=== PATIENT | male | born 1945 | race Caucasian/White ===

== ENCOUNTER → 2018-04-18 12:13 | Outpatient (CLI) | payer MEDICARE, BC, SELFPAY ==
--- NOTE | 2018-04-18 12:20 | RAD_ITS ---
STUDY: X-RAY CHEST REASON FOR EXAM: Male, 73 years old. Chronic cough TECHNIQUE: Frontal and lateral views of the chest. COMPARISON: None. FINDINGS: Elevated right hemidiaphragm. The lungs are clear and expanded. There is a 7 mm nodule in the lateral right lung base. CT scan recommended. No infiltrates. No effusions. There is no demonstrated pleural abnormality. Normal size heart. Normal mediastinum and clary. Normal visualized pulmonary arteries. Normal visualized aortic arch and descending thoracic aorta. There are diffuse degenerative changes of the visualized thoracic spine. Normal visualized ribs, clavicles, and shoulders. There is no demonstrated abnormality of the visualized soft tissue structures of the upper abdomen. RAD/Chest PA and Lateral IMPRESSION: There is a 7 mm nodule in the lateral right lung base. CT scan recommended. Electronically Signed: Dawson Shaw MD at 13:28 EDT , Service support ,
[2018-04-18 14:26] LABS: Absolute Lymphocyte Count 1.41 X10^3/ul (0.83-4.51); Absolute Neutrophil Count 3.6 X10^3/uL (2.0-7.7); Basophil# 0.01 X10^3/uL; Basophil% 0.2 % (0-1); Eosinophil# 0.14 X10^3/uL; Eosinophils% 2.3 % (0-5); Hematocrit 46.1 % (40-54); Hemoglobin 15.2 g/dl (13.0-16.5); Lymphocyte # 1.41 X10^3/ul (4.0); Lymphocyte % 23.4 % (19-41); Mean Corpuscular Hgb 27.6 pg (27.0-32.0); Mean Corpuscular Volume 83.7 fL (80-94); Mean Platelet Vol. 11.5 fl (6.2-12.0); Monocyte# 0.86 X10^3/uL; Monocyte% 14.3 % (0-10); Neutrophil % 59.6 % (47-70); Platelet Count 184 K/mm3 (150-450); RBC Distribution Width CV 14.5 % (11.6-14.6); RBC Distribution Width SD 44.6 fl (35.1-43.9); Red Blood Count 5.51 M/mm3 (4.6-6.2)
[2018-04-18 14:37] LABS: POSITIVE COUNT NO; POSITIVE DIFFERENTIAL NO; POSITIVE MORPHOLOGY NO
== END ==
PROVIDERS: Family Provider Family Medicine; PCP Family Medicine; Visit Provider Family Medicine
DX: R05 Cough (principal)
CPT/HCPCS: 36415; 71046; 85025

== ENCOUNTER → 2018-05-01 13:14 | Outpatient (CLI) | payer MEDICARE, BC, SELFPAY ==
--- NOTE | 2018-05-01 13:17 | CT_ITS ---
STUDY: CT CHEST WITH CONTRAST REASON FOR EXAM: Male, 73 years old. Follow-up for a new lung nodule RADIATION DOSAGE (If Supplied By Facility): CTDIvol = ( 17.87 ) mGy, DLP = ( 744.15 ) mGycm TECHNIQUE: Transaxial imaging was performed following intravenous administration of 100 ml of Isovue 300 contrast material. Individualized dose optimization techniques were used for this CT. COMPARISON: February 18, 2016 FINDINGS: : TRACHEA, THYROID, ESOPHAGUS: No tracheomalacia,stricture or wall thickening. Thyroid and esophagus are normal CARDIOVASCULAR SYSTEM:The thoracic aorta is normal with no aneurysm, dissection or developmental anomalies. The pulmonary trunk and the left and right pulmonary arteries and their lobar and segmental branches do not show any abnormal and persistent filling defects in them. There is therefore no evidence of pulmonary embolism. The heart is normal. There are no venous anomalies VENITA AND LYMPH NODES: No hilar masses and no mediastinal, hilar, axillary or supraclavicular adenopathy LUNGS, LOW-ATTENUATION: No traction bronchiectasis, honeycombing,emphysema, lung cysts or cavitations LUNGS, HIGH ATTENUATION: There is a 7.5 mm calcified granuloma in the right lower lobe. A slightly elevated right hemidiaphragm as a result a wedge resection of the right middle lobe. No nodules, groundglass opacities, groundglass nodules or masses are seen in either lung. LUNGS, MOSAIC/CRAZY PAVING: Not evident PLEURA AND CHEST WALL: No plural effusions, pneumothoraces,rib fractures or any osteolytic/osteoblastic changes . The soft tissue chest wall including the breasts are normal UPPER ABDOMEN: Unremarkable CT/Chest WITH Contrast IMPRESSION: Loss of volume in the right lung secondary to a previous partial right pneumonectomy. Subsequent elevation of the right hemidiaphragm. A calcified granuloma in the right lower lobe. The rest of the lungs are relatively clear. Electronically Signed: Marcellus Marcelo, at 4:15 EDT Tel , Service support ,
--- NOTE | 2018-05-01 13:18 | CT_ITS ---
STUDY: CT MAXILLOFACIAL SINUSES REASON FOR EXAM: Male, 73 years old. Chronic sinusitis and cough RADIATION DOSAGE (If Supplied By Facility): CTDIvol = ( 33.06 ) mGy, DLP = ( 796.66 ) mGycm TECHNIQUE: The patient was scanned in a multi detector CT scanner. High resolution axial imaging was performed without the administration of intravenous contrast material. Sagittal and coronal images were reconstructed. Individualized dose optimization techniques were used for this CT. COMPARISON: None. FINDINGS: : NASAL SEPTUM: Straight and midline with no spurs from it CRIBRIFORM PLATE AND GELY ASHANTI: The fovea ethmoidalis, lateral lamella and lamina cribrosa are normal. The anterior ethmoidal notch is normal with no supraorbital pneumatization. The olfactory fossa is symmetric with a Keros type II. No skull base dehiscence LAMINA PAPYRACEA: No remote orbital fracture and no orbital prolapse into the ethmoidal sinus . BONY BURNS: No dehiscence, demineralization or thickness TURBINATES: Normal thickness and no paradoxical orientation. No sabino bullosa . No turbinectomy OSTIOMEATAL UNITS: Patent with no ethmoidectomy, maxillary antrostomy, uncinectomy or turbinoplasty SPHENOETHMOIDAL RECESS: Patent FRONTAL SINUSES: Haziness within the left frontal sinus with craniotomy defects in the lateral wall of the left frontal sinus ETHMOID AIR CELLS: Aggar Nasi air cells are noted. No Queta air cells. Both the anterior and posterior ethmoidal air cells are clear of abnormal soft tissue attenuations MAXILLARY SINUSES: Normal with no arrested pneumatization or hyperpneumatization and no abnormal soft tissue attenuations SPHENOID SINUSES: Normal with conchal, presellar or sellar type pneumatization. No dehiscence into carotid canal and no optic nerve dehiscence within the sphenoid sinus. 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 Dense bony sclerosis lateral to the left lateral orbital wall CT/Sinus/Facial Bone IMPRESSION: Haziness within the left frontal sinus with craniotomy defects in the superolateral margin of the left frontal sinus. 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
[2018-05-01 13:31] LABS: CREATININE FINGERSTICK 0.9 mg/dL (0.70-1.30); EGFR FINGERSTICK > 60.0000 mL/min (>60)
== END ==
PROVIDERS: Family Provider Family Medicine; PCP Family Medicine; Visit Provider Family Medicine
DX: R91.1 Solitary pulmonary nodule (principal); R05 Cough
CPT/HCPCS: 70486; 71260; Q9967

== ENCOUNTER → 2018-05-03 08:09 | Outpatient (CLI) | payer MEDICARE, BC, SELFPAY ==
--- NOTE | 2018-05-03 13:28 | PFTCOMP_ITS ---
COMPLETE PULMONARY FUNCTION TEST INTERPRETATION Brief HPI: Patient is a 73 year old male, currently under the care of Dr. Lee, who presents to [facility] for complete pulmonary function tests secondary to diagnosis of chronic cough. Respiratory therapist reports good effort and reproducible results. Interpretation: Forced expiration spirometry shows no large airways obstructive ventilatory defect with an FEV1 of 106% predicted. There is no significant bronchodilator response by ATS criteria. Spirograms are of good quality and plateau normally. The respiratory flow volume loop shows a normal pattern. Lung volumes by body plethysmography show an elevated total lung capacity at 8.75 L, 146% predicted. All other lung volumes are increased symmetrically. Diffusion capacity by carbon monoxide is normal at 85% predicted. The airway resistance is normal. No previous pulmonary function tests were available for review. Impression: These pulmonary function tests are grossly within normal limits. There is some hyperinflation noted, but this may be a physiologic variant versus air leak during testing.
== END ==
PROVIDERS: Family Provider Family Medicine; PCP Family Medicine; Visit Provider Family Medicine
DX: R05 Cough (principal)
CPT/HCPCS: 94060; 94726; 94729

== ENCOUNTER → 2018-09-13 09:29 | Outpatient (CLI) | payer MEDICARE, BC, SELFPAY ==
[2018-09-13 12:29] LABS: Erythrocyte Sedimentation Rate 3 mm/hr (0-20)
[2018-09-17 11:50] LABS: Angiotensin Convert Enzyme 32 U/L (14-82)
== END ==
PROVIDERS: Family Provider Family Medicine; PCP Family Medicine; Referring Provider Internal Medicine Pulmonary Disease; Visit Provider Internal Medicine Pulmonary Disease
DX: R05 Cough (principal); I10 Essential (primary) hypertension
CPT/HCPCS: 36415; 82164; 85652

== ENCOUNTER → 2019-02-26 09:05 | Outpatient (CLI) | payer MEDICARE, BC, SELFPAY ==
[2018-09-10 08:50] VITALS: BMI 38.3
--- NOTE | 2019-02-26 09:30 | LES_PTH ---
PATIENT: CHUCK JASON LOC: [facility] U#:[id number] AGE/SX: 80/M ROOM: RE02/26/[address]: Dr. Otoniel Lee DO : 1945 BED: DIS: SPEC #: [id number] RECD: 02/26/19 13:31 STATUS: TO AMERCIA #: [id number] CAT: 02/26/19 09:[address]: Otoniel Lee DEPT: SURGICAL PATHOLOGY RECD BY: Shahid Carney Tissues: Skin of back, NOS Procedures: Surgery Specimen Level IV HEADER OPERATION: Punch biopsy atypical nevus PRE-OP DIAGNOSIS: Large nevus right shoulder, pigmented, favor benign TISSUE SUBMITTED: 4 mm punch biopsy nevus right upper back MICROSCOPIC DIAGNOSIS Right upper back skin lesion, punch biopsy: Seborrheic keratosis with focal verrucous keratosis-like features. Negative for malignancy. SJ:gus 02/27/19 MICROSCOPIC DESCRIPTION Slides are reviewed. GROSS DESCRIPTION Received is one container labeled with the patient's name and not further designated. The specimen consists of a punch biopsy of gardiner-white skin measuring 0.3 cm in length and 0.3 cm in diameter. The entire specimen is submitted in one cassette. / SJ:gus 02/26/19 TC:5 CPT: 66473
== END ==
PROVIDERS: Family Provider Family Medicine; PCP Family Medicine; Visit Provider Family Medicine
DX: L82.1 Other seborrheic keratosis (principal)
CPT/HCPCS: 88305

== ENCOUNTER → 2019-09-16 10:00 | Outpatient (CLI) | payer MEDICARE, BC, SELFPAY ==
[2019-09-16 08:26] VITALS: BMI 36.6
[2019-09-16 10:58] LABS: AST(SGOT) 19 U/L (15-37); Alanine Aminotransfer ALT/SGPT 22 U/L (16-61); Albumin, Serum 3.6 g/dL (3.2-5.0); Alkaline Phosphatase 116 U/L (45-117); Bilirubin, Direct 0.31 mg/dL (0.00-0.30); Cholesterol 155 mg/dL (200); Globulin 3.4 g/dL (2.2-4.2); High Density Lipoprotein 50 mg/dL; Triglycerides 104 mg/dL; Very Low Density Lipoprotein 21 mg/dL (5-40)
== END ==
PROVIDERS: Family Provider Family Medicine; PCP Family Medicine; Referring Provider Nurse Practitioner Family; Visit Provider Nurse Practitioner Family
DX: E78.5 Hyperlipidemia, unspecified (principal); I10 Essential (primary) hypertension
CPT/HCPCS: 36415; 80061; 80076

== ENCOUNTER → 2020-08-05 | Outpatient (CLI) | payer MEDICARE, BC, SELFPAY ==
[2019-09-16 08:26] VITALS: BMI 36.6
[2020-08-05 08:57] LABS: Mucous, Urine 0 SEEN /hpf (<or=2+)
[2020-08-05 09:25] LABS: Color, Urine Yellow (Yellow); Glucose, Dipstick Normal (Normal); Ketone-Dipstick 5 mg/dl (Negative); Leukocyte Esterase-Dipstick Negative /ul (Negative); Nitrite-Dipstick Negative (Negative); Occult Blood-Urine 25 /ul (Negative); Protein-Dipstick 15 mg/dl (Negative); Urine Bilirubin Dipstick Negative (Negative); Urine Clarity Clear (Clear); Urine Urobilinogen 4 mg/dl (Normal)
[2020-08-05 09:29] LABS: Absolute Lymphocyte Count 1.42 X10^3/uL (0.83-4.51); Absolute Neutrophil Count 3.2 X10^3/uL (2.0-7.7); Basophil# 0.06 X10^3/uL; Basophil% 1.1 % (0-1); Eosinophil# 0.12 X10^3/uL; Eosinophils% 2.3 % (0-5); Hematocrit 45.2 % (40-54); Hemoglobin 14.3 g/dL (13.0-16.5); Lymphocyte # 1.42 X10^3/ul (4.0); Lymphocyte % 26.6 % (19-41); Mean Corp Hgb Conc 31.6 g/dL (32-36); Mean Corpuscular Hgb 26.5 pg (27.0-32.0); Mean Corpuscular Volume 83.7 fL (80-94); Mean Platelet Vol. 11.5 fl (6.2-12.0); Monocyte# 0.56 X10^3/uL; Monocyte% 10.5 % (0-10); NRBC Flagged by Analyzer 0 % (0-5); Neutrophil # 3.16 X10^3/uL (2.7-7.7); Neutrophil % 59.3 % (47-70); Platelet Count 209 K/mm3 (150-450); RBC Distribution Width CV 15.1 % (11.6-14.6); RBC Distribution Width SD 45.9 fl (35.1-43.9); White Blood Count 5.3 K/mm3 (4.4-11.0)
[2020-08-05 09:33] LABS: Bacteria 1+ /hpf (None Seen); Hyaline Cast 0-5 SEEN /lpf (0-5); Red Blood Cells-Urine 0-5 SEEN /hpf (0-5); Squamous Epithelial Cells - UA 0-5 SEEN /hpf (0-5); White Blood Cells 0-5 SEEN /hpf (0-5)
[2020-08-05 10:02] LABS: ALB/GLOB Ratio 1.1 RATIO (0.9-2.4); AST(SGOT) 25 U/L (15-37); Alanine Aminotransfer ALT/SGPT 31 U/L (16-61); Albumin, Serum 3.5 g/dL (3.2-5.0); Alkaline Phosphatase 120 U/L (45-117); Anion Gap 3 (5-15); BUN 15 mg/dL (7-18); BUN/Creat Ratio 11.5 RATIO (10-20); Calcium,Total 8.4 mg/dL (8.5-10.1); Chloride 109 mmol/L (98-107); Cholesterol 154 mg/dL (200); Creatinine, Serum 1.31 mg/dL (0.70-1.30); EST Glomerular Filtration Rate 57 mL/min (>60); Est Glom Filt Rate - Afr Amer 69 mL/min (>60); Globulin 3.3 g/dL (2.2-4.2); Glucose 105 mg/dL (74-106); High Density Lipoprotein 49 mg/dL; PSA,Total - Annual Screen 1.75 ng/mL (0.00-4.00); Protein, Total 6.8 g/dL (6.4-8.2); Sodium Level 143 mmol/L (136-145); Triglycerides 171 mg/dL; Very Low Density Lipoprotein 34 mg/dL (5-40)
== END | disposition home or self-care (01) ==
LOC: LAB 08:52
PROVIDERS: PCP Family Medicine; Referring Provider Family Medicine; Visit Provider Family Medicine
DX: I25.10 Atherosclerotic heart disease of native coronary artery without angina pectoris (principal); I10 Essential (primary) hypertension; E80.6 Other disorders of bilirubin metabolism; R31.29 Other microscopic hematuria; Z12.5 Encounter for screening for malignant neoplasm of prostate; Z51.81 Encounter for therapeutic drug level monitoring
CPT/HCPCS: 36415; 80053; 80061; 81001; 84153; 85025; G0103

== ENCOUNTER → 2020-10-04 06:37 | Outpatient (CLI) | payer MEDICARE, BC, SELFPAY ==
[2020-09-21 07:43] VITALS: BMI 38.0
--- NOTE | 2020-10-04 15:48 | STRESSREP ---
Stress Test Report Exercise myocardial perfusion stress test. 75-year-old man with a history of hypertension, hyperlipidemia, moderate LAD stenosis. Stress protocol: Resting KG demonstrates normal sinus rhythm with a rate of 66 bpm normal intervals are noted resting blood pressure is 138/80 mmHg. The patient exercised according to regular Lee protocol for a total duration of 3 minutes and 40 seconds completing 40 seconds into stage II of the Lee protocol. The maximum heart rate attained was 155 bpm which was 106% of max impacted heart rate the maximum workload was 5.4 metabolic equivalents. The test was terminated due to fatigue. Patient maintained sinus rhythm throughout the recording. T wave inversions were noted in lead aVL with occasional premature ventricular complexes. Upsloping ST changes were noted with no meet the criteria for ischemia. The peak blood pressure was 180/70 mmHg. Myocardial perfusion protocol. 14.1 mCi of technetium 99m sestamibi was injected at rest. Patient exercised according to regular Lee protocol for a total duration of 3 minutes and 40 seconds. The maximum heart rate attained 155 bpm at peak exercise 44.3 mCi of technetium 99m sestamibi was injected at rest. Stress and rest images were reconstructed and compared in the short axis vertical long horizontal long axis. Gated images were also obtained Perfusion SPECT analysis: Review of the stress images demonstrate normal uptake of tracer noted in all areas of the myocardium the resting images similarly demonstrate normal uptake of tracer noted in all areas of the myocardium. No reversibility is noted suggest ischemia no previous infarct is noted. Gated SPECT analysis: The gated ejection fraction is 51%. Conclusion: Normal exercise myocardial perfusion stress test at a low to moderate workload. No clinical angina noted. The extent of the exercise may affect sensitivity for detection of ischemia.
== END ==
PROVIDERS: PCP Family Medicine; Referring Provider Internal Medicine Cardiovascular Disease; Visit Provider Internal Medicine Cardiovascular Disease
DX: I25.10 Atherosclerotic heart disease of native coronary artery without angina pectoris (principal)
CPT/HCPCS: 78452; 93017; A9500; A4216

== ENCOUNTER → 2021-10-24 | Outpatient (CLI) | payer MEDICARE, BC, SELFPAY | END | disposition home or self-care (01) | LOC: LABSPEC 10-25 10:49 | PROVIDERS: PCP Family Medicine; Referring Provider Family Medicine; Visit Provider Family Medicine | DX: N30.00 Acute cystitis without hematuria (principal) | CPT/HCPCS: 87077; 87086; 87088; 87186 ==

== ENCOUNTER → 2021-10-31 09:30 | Outpatient (CLI) | payer MEDICARE, BC, SELFPAY ==
[2021-10-31 10:50] LABS: AST(SGOT) 27 U/L (15-37); Alanine Aminotransfer ALT/SGPT 32 U/L (16-61); Albumin, Serum 3.3 g/dL (3.2-5.0); Alkaline Phosphatase 114 U/L (45-117); Bilirubin, Direct 0.23 mg/dL (0.00-0.30); Cholesterol 162 mg/dL (200); Globulin 3.7 g/dL (2.2-4.2); High Density Lipoprotein 48 mg/dL; Triglycerides 138 mg/dL; Very Low Density Lipoprotein 28 mg/dL (5-40)
== END ==
PROVIDERS: PCP Family Medicine; Referring Provider Nurse Practitioner Family; Visit Provider Nurse Practitioner Family
DX: E78.5 Hyperlipidemia, unspecified (principal)
CPT/HCPCS: 36415; 80061; 80076

== ENCOUNTER → 2022-02-28 | Outpatient (CLI) | payer MEDICARE, BC, SELFPAY | END | disposition home or self-care (01) | LOC: LABSPEC 18:13 | PROVIDERS: PCP Family Medicine; Visit Provider Family Medicine | DX: R35.0 Frequency of micturition (principal) | CPT/HCPCS: 87077; 87086; 87088; 87186 ==

== ENCOUNTER → 2022-05-17 | Outpatient (CLI) | payer MEDICARE, BC, SELFPAY | END | disposition home or self-care (01) | LOC: LABSPEC 05-18 08:15 | PROVIDERS: PCP Family Medicine; Visit Provider Family Medicine | DX: R35.0 Frequency of micturition (principal) | CPT/HCPCS: 87077; 87086; 87088; 87186 ==

== ENCOUNTER → 2022-06-01 | Outpatient (CLI) | payer MEDICARE, BC, SELFPAY ==
[2022-06-01 14:00] LABS: PSA,Total - Annual Screen 1.77 ng/mL (0.00-4.00)
== END | disposition home or self-care (01) ==
PROVIDERS: PCP Family Medicine; Referring Provider Urology; Visit Provider Urology
DX: Z12.5 Encounter for screening for malignant neoplasm of prostate (principal)
CPT/HCPCS: 36415; 84153; G0103

== ENCOUNTER → 2022-06-26 | Outpatient (CLI) | payer MEDICARE, BC, SELFPAY | END | disposition home or self-care (01) | LOC: LAB 11:10 | PROVIDERS: PCP Family Medicine; Referring Provider Urology; Visit Provider Urology | DX: R35.0 Frequency of micturition (principal) | CPT/HCPCS: 87077; 87086; 87088; 87186 ==

== ENCOUNTER → 2022-06-28 | Outpatient (CLI) | payer MEDICARE, BC, SELFPAY ==
--- NOTE | 2022-06-28 08:03 | CT_ITS ---
STUDY: CT ABDOMEN AND PELVIS WITHOUT CONTRAST REASON FOR EXAM: Male, 77 years old. HEMATURIA AND UTI''S RADIATION DOSAGE (If Supplied By Facility): CTDIvol = ( 19.97 ) mGy, DLP = ( 1038.66 ) mGycm TECHNIQUE: Transaxial images were obtained from the dome of the diaphragm to the symphysis pubis without oral contrast, and without intravenous contrast. Sagittal and coronal images were reconstructed. Individualized dose optimization techniques were used for this CT. COMPARISON: None. FINDINGS: 6.3 mm calcified granuloma in the right lower lobe. Calcified right hilar lymph node. Coronary artery calcification. Normal liver. There are surgical clips in the gallbladder fossa consistent with a prior cholecystectomy. There are multiple benign calcified granulomata of the spleen. Normal pancreas. Normal bilateral adrenal glands. There is a 6 cm x 5.1 cm cyst in the lower pole of the right kidney. 1 cm cyst in the anterior lateral aspect of the right kidney. Normal left kidney. There is a small hiatal hernia. Normal small intestine. Normal colon. The appendix is visualized and appears normal. There is diffuse atherosclerotic calcification of the abdominal aorta, without a demonstrated aneurysm. Normal inferior vena cava. Normal retroperitoneum. Normal urinary bladder. There is a right-sided inguinal hernia containing adipose tissue. There are degenerative changes of the visualized lumbar spine. CT/Abdomen/Pelvis without Cont IMPRESSION: 6 cm x 5.1 cm cyst in the lower pole of the right kidney Electronically Signed: Jeff Forman MD at 8:36 EDT ,
== END | disposition home or self-care (01) ==
LOC: CT 08:02
PROVIDERS: PCP Family Medicine; Referring Provider Urology; Visit Provider Urology
DX: R31.9 Hematuria, unspecified (principal)
CPT/HCPCS: 74176

== ENCOUNTER → 2022-09-04 | Outpatient (CLI) | payer MEDICARE, BC, SELFPAY ==
[2022-09-04 16:25] LABS: Anion Gap 6 (5-15); BUN 19 mg/dL (7-18); BUN/Creat Ratio 14.1 RATIO (10-20); Chloride 109 mmol/L (98-107); Creatinine, Serum 1.35 mg/dL (0.70-1.30); EST Glomerular Filtration Rate 55 mL/min (>60); Est Glom Filt Rate - Afr Amer 66 mL/min (>60); Glucose 119 mg/dL (74-106); Potassium 3.8 mmol/L (3.5-5.1); Sodium Level 144 mmol/L (136-145)
== END | disposition home or self-care (01) ==
LOC: LAB 14:40
PROVIDERS: PCP Family Medicine; Visit Provider Urology
DX: N30.01 Acute cystitis with hematuria (principal)
CPT/HCPCS: 36415; 80048

== ENCOUNTER → 2022-12-27 | Outpatient (CLI) | payer MEDICARE, BC, SELFPAY ==
[2022-12-27 11:34] LABS: AST(SGOT) 30 U/L (15-37); Alanine Aminotransfer ALT/SGPT 40 U/L (16-61); Albumin, Serum 3.5 g/dL (3.2-5.0); Alkaline Phosphatase 111 U/L (45-117); Bilirubin, Direct 0.29 mg/dL (0.00-0.30); Cholesterol 150 mg/dL (200); Globulin 3.5 g/dL (2.2-4.2); High Density Lipoprotein 48 mg/dL; Triglycerides 132 mg/dL; Very Low Density Lipoprotein 26 mg/dL (5-40)
== END | disposition home or self-care (01) ==
LOC: LAB 08:57
PROVIDERS: PCP Family Medicine; Visit Provider Internal Medicine Cardiovascular Disease
DX: E78.5 Hyperlipidemia, unspecified (principal); I10 Essential (primary) hypertension; I25.10 Atherosclerotic heart disease of native coronary artery without angina pectoris
CPT/HCPCS: 36415; 80061; 80076

== ENCOUNTER → 2023-04-16 | Outpatient (CLI) | payer MEDICARE, BC, SELFPAY ==
[2023-04-16 15:28] LABS: Absolute Lymphocyte Count 0.91 X10^3/uL (0.83-4.51); Absolute Neutrophil Count 2.9 X10^3/uL (2.0-7.7); Basophil# 0.02 X10^3/uL; Basophil% 0.4 % (0-1); Eosinophil# 0.09 X10^3/uL; Eosinophils% 1.8 % (0-5); Hematocrit 53.7 % (40-54); Hemoglobin 17.3 g/dL (13.0-16.5); Lymphocyte # 0.91 X10^3/ul (0.83-4.51); Lymphocyte % 17.9 % (19-41); Mean Corp Hgb Conc 32.2 g/dL (32-36); Mean Corpuscular Hgb 28.8 pg (27.0-32.0); Mean Corpuscular Volume 89.4 fL (80-94); Monocyte# 1.16 X10^3/uL; Monocyte% 22.8 % (0-10); NRBC Flagged by Analyzer 0 % (0-5); Neutrophil # 2.89 X10^3/uL (2.7-7.7); Neutrophil % 56.7 % (47-70); Platelet Count 177 K/mm3 (150-450); RBC Distribution Width CV 14.1 % (11.6-14.6); Red Blood Count 6.01 M/mm3 (4.6-6.2); White Blood Count 5.1 K/mm3 (4.4-11.0)
== END | disposition home or self-care (01) ==
LOC: BFHLAB 11:21
PROVIDERS: PCP Family Medicine; Referring Provider Family Medicine; Visit Provider Family Medicine
DX: R05.9 Cough, unspecified (principal)
CPT/HCPCS: 36415; 85025

== ENCOUNTER → 2023-05-04 | Outpatient (CLI) | payer MEDICARE, BC, SELFPAY ==
--- NOTE | 2023-05-05 07:11 | BRONCHALL ---
Bronchoprovocation Challenge Bronchoprovocation Challenge Bronchoprovocation Challenge: INTRODUCTION: The patient is a 78-year-old male that presents for a bronchoprovocation challenge secondary to a diagnosis of cough. Respiratory therapist reported good patient effort and reproducible results. INTERPRETATION: Initial spirometry did not show any large airways obstructive ventilatory defect and preserved airflows throughout. The patient was then given progressively increasing doses of methacholine in a standardized fashion. At no point during the testing did the patient's FEV1 level drop to the threshold criteria to be considered a positive test. IMPRESSION: Negative methacholine inhalation challenge.
== END | disposition home or self-care (01) ==
LOC: PSN 09:14
PROVIDERS: PCP Family Medicine; Referring Provider Family Medicine; Visit Provider Family Medicine
DX: R05.3 Chronic cough (principal)
CPT/HCPCS: 94070; 95070; J3490; J7674

== ENCOUNTER → 2023-05-22 | Outpatient (CLI) | payer MEDICARE, BC, SELFPAY ==
--- NOTE | 2023-05-22 13:55 | CT_ITS ---
INDICATION: Chronic cough - concern for bronchiectasis -- Please include HRCT imaging EXAMINATION: CT CHEST WITHOUT CONTRAST - CT Chest High Resolution WO Contrast Injection TECHNIQUE: Helically acquired images were obtained of the chest, initially in prone position, and subsequently in supine position. A radiation dose optimization technique was used for this scan. IV Contrast dosage and agent: None. RADIATION DOSAGE (If Supplied By Facility): CTDIvol = ( 20.39 ) mGy, DLP = ( 1572.89 ) mGycm COMPARISON: IV contrast enhanced CT chest May 01, 2018 FINDINGS: LUNGS, PLEURA AND LARGE AIRWAYS: Changes of prior partial anterior right pneumonectomy again seen, with surgical clips and sutures along the inferior right lung and elevated anterior diaphragm. Calcified granuloma in the lateral basilar right lower lobe also unchanged. No new nodules or infiltrates. No pleural effusion or thickening. No pneumothorax. THYROID: No thyroid lesions. HEART AND PERICARDIUM: Heart size is normal. No pericardial effusion. CORONARY ARTERIES: Coronary artery calcification is seen. VESSELS: Stable atherosclerotic calcifications of the thoracic aortic arch and descending thoracic aorta. Thoracic aorta is not dilated. MEDIASTINUM AND VENITA: Stable calcified right anterior paratracheal lymph nodes just above the azygos arch. Stable calcified lymph node medial to the right mainstem bronchus. No mediastinal or hilar adenopathy. Esophagus is unremarkable. No hiatal hernia. UPPER ABDOMEN: No acute pathology. Surgical clips of prior cholecystectomy noted gallbladder fossa. There are numerous calcified granulomata in the spleen. BONES: Stable multilevel degenerative changes of the thoracic spine, including multilevel calcification in the anterior longitudinal ligament again noted. No suspicious lytic or blastic abnormality. CT/Chest without Contrast IMPRESSION: 1. 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 No acute cardiopulmonary pathology. 2. Prior cholecystectomy. Electronically Signed: Abdi Lacey MD at 15:24 EDT Reading Location ID and State: [id number] / Unknown , Service support ,
== END | disposition home or self-care (01) ==
LOC: CT 13:53
PROVIDERS: PCP Family Medicine; Referring Provider Internal Medicine Critical Care Medicine; Visit Provider Internal Medicine Critical Care Medicine
DX: R05.3 Chronic cough (principal)
CPT/HCPCS: 71250

== ENCOUNTER → 2023-08-23 | Outpatient (CLI) | payer MEDICARE, BC, SELFPAY | END | disposition home or self-care (01) | PROVIDERS: PCP Family Medicine; Referring Provider Internal Medicine Critical Care Medicine; Visit Provider Internal Medicine Critical Care Medicine | DX: J47.9 Bronchiectasis, uncomplicated (principal) | CPT/HCPCS: 94667 ==

== ENCOUNTER → 2024-01-11 | Outpatient (CLI) | payer MEDICARE, BC, SELFPAY ==
--- NOTE | 2024-01-11 13:30 | CDU_ITS ---
Reason For Study: HX CAD / Lt Carotid Stenosis Rt. Velocities/BP Lt. Velocities/BP Prox CCA 63.4/10.6 cm/sec. Prox CCA 113.3/14.5 cm/sec. Mid CCA 56.0/9.3 cm/sec. Mid CCA 86.9/16.7 cm/sec. Dist CCA 81.8/9.3 cm/sec. Dist CCA 82.5/12.3 cm/sec. Prox ICA 47.8/9.1 cm/sec. Prox ICA 60.0/9.5 cm/sec. Mid ICA 42.5/10.6 cm/sec. Mid ICA 49.0/10.6 cm/sec. Dist ICA 66.8/15.7 cm/sec. Dist ICA 48.7/14.7 cm/sec. Rt. ICA/CCA = 1.2. Lt. ICA/CCA = 0.7. Prox ECA 126.4/0.0 cm/sec. Prox ECA 198.5/6.7 cm/sec. Rt. Vert. 35.4/7.5 cm/sec. Lt. Vert. 48.6/11.8 cm/sec. Right Extracranial There is homogeneous, smooth atherosclerotic plaque noted in the right common carotid artery. There is intimal thickening but no significant atherosclerotic plaque noted in the right internal carotid artery. There is heterogeneous, irregular atherosclerotic plaque noted in the right external carotid artery. Antegrade flow is noted in the right vertebral artery. Left Extracranial There is homogeneous, smooth atherosclerotic plaque noted in the left common carotid artery. There is intimal thickening but no significant atherosclerotic plaque noted in the left internal carotid artery. There is heterogeneous, irregular atherosclerotic plaque noted in the left external carotid artery. Antegrade flow is noted in the left vertebral artery. Procedure Carotid Duplex 41613. This is a Carotid Duplex examination using B-mode, color flow and specral Doppler. The exam was diagnostic. Exam performed in department. VL/Carotid Duplex Ultrasound Interpretation Summary Normal right extracranial internal carotid. Normal left extracranial internal carotid. Patent and antegrade vertebrals bilaterally. Ordering Physician: Sorin Candelario Referring Physician: Otoniel Lee Performed By: Rivera Uriostegui RVT
== END | disposition home or self-care (01) ==
LOC: CVS 13:29
PROVIDERS: PCP Family Medicine; Referring Provider Nurse Practitioner Family; Visit Provider Nurse Practitioner Family
DX: I65.22 Occlusion and stenosis of left carotid artery (principal); I10 Essential (primary) hypertension; I25.10 Atherosclerotic heart disease of native coronary artery without angina pectoris; E78.5 Hyperlipidemia, unspecified
CPT/HCPCS: 93880

== ENCOUNTER → 2024-01-24 | Outpatient (CLI) | payer MEDICARE, BC, SELFPAY ==
[2024-01-24 11:43] LABS: AST(SGOT) 32 U/L (15-37); Alanine Aminotransfer ALT/SGPT 44 U/L (16-61); Albumin, Serum 3.4 g/dL (3.2-5.0); Alkaline Phosphatase 99 U/L (45-117); Bilirubin, Direct 0.37 mg/dL (0.00-0.30); Cholesterol 151 mg/dL (200); Globulin 3.3 g/dL (2.2-4.2); High Density Lipoprotein 45 mg/dL; Protein, Total 6.7 g/dL (6.4-8.2); Triglycerides 213 mg/dL; Very Low Density Lipoprotein 43 mg/dL (5-40)
== END | disposition home or self-care (01) ==
LOC: LAB 08:12
PROVIDERS: PCP Family Medicine; Referring Provider Nurse Practitioner Family; Visit Provider Nurse Practitioner Family
DX: E78.00 Pure hypercholesterolemia, unspecified (principal)
CPT/HCPCS: 36415; 80061; 80076

== ENCOUNTER 2024-03-24 20:01 | Outpatient (CLI) | payer MEDICARE, BC, SELFPAY | END 2024-03-24 23:59 | disposition home or self-care (01) | LOC: SL 20:01 | PROVIDERS: PCP Family Medicine; Referring Provider Nurse Practitioner Acute Care; Visit Provider Nurse Practitioner Acute Care | DX: G47.31 Primary central sleep apnea (principal); G47.10 Hypersomnia, unspecified | CPT/HCPCS: 95811 ==

== ENCOUNTER → 2024-10-15 | Outpatient (CLI) | payer MEDICARE, BC, SELFPAY ==
[2024-10-15 15:26] LABS: Absolute Lymphocyte Count 1.56 X10^3/uL (0.83-4.51); Absolute Neutrophil Count 3.5 X10^3/uL (2.0-7.7); Basophil# 0.04 X10^3/uL; Basophil% 0.7 % (0-1); Eosinophil# 0.13 X10^3/uL; Eosinophils% 2.2 % (0-5); Hematocrit 49.9 % (40-54); Hemoglobin 16.8 g/dL (13.0-16.5); Lymphocyte # 1.56 X10^3/ul (0.83-4.51); Lymphocyte % 26.5 % (19-41); Mean Corp Hgb Conc 33.7 g/dL (32-36); Mean Corpuscular Hgb 30.2 pg (27.0-32.0); Mean Corpuscular Volume 89.6 fL (80-94); Mean Platelet Vol. 11.7 fl (6.2-12.0); Monocyte# 0.68 X10^3/uL; Monocyte% 11.6 % (0-10); NRBC Flagged by Analyzer 0 % (0-5); Neutrophil # 3.45 X10^3/uL (2.7-7.7); Neutrophil % 58.7 % (47-70); Platelet Count 189 K/mm3 (150-450); RBC Distribution Width SD 42.4 fl (35.1-43.9); Red Blood Count 5.57 M/mm3 (4.6-6.2); White Blood Count 5.9 K/mm3 (4.4-11.0)
[2024-10-15 15:43] LABS: Anion Gap 4 (5-15); BUN 14 mg/dL (7-18); BUN/Creat Ratio 10.6 RATIO (10-20); Calcium,Total 9.4 mg/dL (8.5-10.1); Chloride 110 mmol/L (98-107); Creatinine, Serum 1.32 mg/dL (0.70-1.30); EST Glomerular Filtration Rate 56 mL/min (>60); Est Glom Filt Rate - Afr Amer 67 mL/min (>60); Glucose 101 mg/dL (74-106); Potassium 4.2 mmol/L (3.5-5.1); Sodium Level 142 mmol/L (136-145)
== END | disposition home or self-care (01) ==
LOC: BFHLAB 11:59
PROVIDERS: PCP Family Medicine; Visit Provider Family Medicine
DX: I10 Essential (primary) hypertension (principal); D75.1 Secondary polycythemia
CPT/HCPCS: 36415; 80048; 85025

== ENCOUNTER → 2025-07-23 | Outpatient (CLI) | payer MEDICARE, BC, SELFPAY ==
--- NOTE | 2025-07-23 13:31 | ECHOCS_ITS ---
Reason For Study Reason For Study: DYSPNEA/SOB Procedure This was a 2D Doppler, Color Flow transthoracic echocardiogram. The study was technically difficult. Due to body habitus. Contrast injection was performed. Exam performed in department. Left Ventricle Normal LV size. Left ventricular systolic function is normal. The left ventricular ejection fraction is 65 %. No regional wall motion abnormalities noted. Right Ventricle Normal RV size. Normal systolic function. Atria Normal left atrium. Normal right atrium. Mitral Valve Normal mitral valve. Tricuspid Valve Normal tricuspid valve. Mild (1+) tricuspid valve insufficiency. Pulmonary artery systolic pressure is 30 mmHg. Aortic Valve Trisinus/trileaflet aortic valve. Pulmonic Valve Normal pulmonic valve. Great Vessels Normal aortic root. The pulmonary artery is normal size. Inferior vena cava collapse with respiration. Pericardium/Pleural No pericardial effusion. Medication 22 gauge I.V. with prn adaptor inserted into left arm. Diluted definity 2.0ml given slow IV push to enhance endocardial definition. MMode/2D Measurements & Calculations LVIDd: 4.9 cm IVSd: 1.1 cm Ao root diam: 3.4 cm LVIDs: 3.5 cm LVPWd: 1.2 cm RVDd: 3.0 cm FS: 28.9 % asc Aorta Diam: 3.5 cm LAV(MOD-bp): 46.9 ml LVAd ap4: 14.4 cm2 LAV(MOD-bp) Indexed: 21.1 ml/m2 LVLd ap4: 5.3 cm LAV(MOD-sp2): 46.8 ml EDV(MOD-sp4): 33.8 ml LAV(MOD-sp4): 38.4 ml EDV(sp4-el): 33.0 ml LVAs ap4: 7.8 cm2 LVLs ap4: 4.4 cm ESV(MOD-sp4): 12.3 ml ESV(sp4-el): 11.7 ml EF(MOD-sp4): 63.7 % EF(sp4-el): 64.7 % SV(MOD-sp4): 21.5 ml SV(sp4-el): 21.4 ml LA A4 area: 14.6 cm2 SI(MOD-sp4): 9.7 ml/m2 LA dimension(2D): 3.9 cm RA A4 area: 10.8 cm2 TAPSE: 2.3 cm Time Measurements MV dec time: 0.25 sec Doppler Measurements & Calculations MV E max guero: 82.8 cm/sec Lat Peak E' Guero: 10.4 cm/sec Med Peak E' Guero: 8.1 cm/sec MV A max guero: 101.1 cm/sec E/E' lat: 8.0 E/E' med: 10.2 MV E/A: 0.82 MV V2 max: 106.8 cm/sec MV P1/2t max guero: 91.1 cm/sec Ao V2 max: 136.1 cm/sec MV max P.6 mmHg MV P1/2t: 70.0 msec Ao max P.4 mmHg MV V2 mean: 49.5 cm/sec MV dec slope: 381.1 cm/sec2 Ao V2 mean: 98.5 cm/sec MV mean P.2 mmHg MVA(P1/2t): 3.1 cm2 Ao mean P.2 mmHg MV V2 VTI: 30.9 cm Ao V2 VTI: 27.9 cm AV (velocity ratio): 0.79 LV V1 max: 101.3 cm/sec PA V2 max: 100.0 cm/sec TR max guero: 262.4 cm/sec LV V1 max P.1 mmHg PA V2 mean: 64.7 cm/sec TR max P.6 mmHg LV V1 mean P.4 mmHg LV V1 mean: 74.7 cm/sec LV V1 VTI: 22.1 cm ECHO/Echo Complete W/ Contrast Interpretation Summary Normal LV size. Left ventricular systolic function is normal. The left ventricular ejection fraction is 65 %. Pulmonary artery systolic pressure is 30 mmHg. Contrast injection was performed. Ordering Physician: Sandra Berry Referring Physician: Otoniel Lee Performed By: Yvonne Garcia, ALMACS, RVT
== END | disposition home or self-care (01) ==
LOC: CVS 13:28
PROVIDERS: PCP Family Medicine; Referring Provider Nurse Practitioner Acute Care; Visit Provider Nurse Practitioner Acute Care
DX: R06.02 Shortness of breath (principal)
CPT/HCPCS: 93306; Q9957; A4216; C8929

== ENCOUNTER → 2025-07-28 | Outpatient (CLI) | payer MEDICARE, BC, SELFPAY ==
--- OUTSIDE RECORDS SUMMARY | 2025-07-28 19:51 | XMS RPT_ITS | CCD ---
Author Organization [facility] Care Team Providers Care Wedger Name Role Phone Carolyn Hargrove Unavailable Unavailable Carolyn Hargrove Unavailable Unavailable LISA HOWARD MD Attending Unavailable LISA HOWARD MD Primary Care Unavailable LISA HOWARD MD Admitting Unavailable HABERJAN LLOYD Admitting Unavailable HABJAN WOLFE Attending Unavailable JNA MONTANEZ Primary Care Unavailable Unknown, Referring Provider Unavailable Unav ailable Unavailable Unavailable Otoniel Lee Unavailable Brandi, Dr. Beny Feliz Attending Unavailable [facility], Dr. Beny Herring Referring Unavailable UNKNOWN, PCP Primary Care Unavailable Cipriano, Dr. Rasheeda Lundberg Attending Unavailable UNKNOWN, PCP Primary Care Unavailable Cipriano, Dr. Rasheeda Lundberg Attending Unavailable Cipriano, Dr. Rasheeda Lundberg Referring Unavailable UNKNOWN, PCP Primary Care Unavailable Cipriano, Dr. Rasheeda Lundberg Admitting Unavailable Cipriano, Dr. Rasheeda Lundberg Attending Unavailable Cipriano, Dr. Rasheeda Lundberg Referring Unavailable Dr. Otoniel Lee Primary Care Unavaila ble Dr. Otoniel Lee Primary Care Provider [phone] Otoniel Lee Referring Provider Dr. Carlos Gray Attending Provider [phone] Dr. Otoniel Lee Primary Care Unavaila ble Rasheeda Cota Attending Unavailable CiprianoRasheeda Referring Unavailable Dr. Otoniel Lee Primary Care Provider [phone] Dr. Otoniel Lee Referring Provider Dr. Carlos Gray Attending Provider [phone] Dr. Otoniel Lee Primary Care Provider [phone] Dr. Otoniel Lee Referring Provider Dr. Otoniel Lee Other Provider Dr. Joe Guo Attending Provider Dr. Lee Ervin Attending Provider Dr. Otoniel Lee Primary Care Provider Dr. Otoniel Lee Referring Provider Roof TRANSVERSE ABDOMINAL MUSCLE SURGEON, TRANSVERSE ABDOMINAL MUSCLE SURGEON-C Lisa Grover Attending Provider Dr. Gilbert Yee Attending Provider Roof TRANSVERSE ABDOMINAL MUSCLE SURGEON, TRANSVERSE ABDOMINAL MUSCLE SURGEON-C iLsa Grover Referring Provider Dr. Otoniel Lee DO Primary Care Provider Dr. Otoniel Lee DO Referring Provider Jamal TRANSVERSE ABDOMINAL MUSCLE SURGEON-CSandra Attending Provider Otoniel Lee Primary Care Unavailable Isaac, Carlos Attending Unavailable Berry TRANSVERSE ABDOMINAL MUSCLE SURGEON, Sandra Attending Unavailable Otoniel Lee Primary Care Unavailable JesusOtoniel crump Referring Unavailable Jesus, Otoniel Attending Unavailable Jesus, Otoniel Primary Care Unavailable Berry TRANSVERSE ABDOMINAL MUSCLE SURGEON, Sandra Attending Unavailable Jesus, Otoniel Primary Care Unavailable Berry TRANSVERSE ABDOMINAL MUSCLE SURGEON, Sandra Referring Unavailable Berry TRANSVERSE ABDOMINAL MUSCLE SURGEON, Sandra Attending Unavailable Otoniel Lee Primary Care Unavailable Jamal TRANSVERSE ABDOMINAL MUSCLE SURGEON, Sandra Referring Unavailable Jesus, Otoniel Referring Unavailable Jesus, Otoniel Primary Care Unavailable Isaac, [place] Attending Unavailable Jesus, Otoniel Referring Unavailable JesusOtoniel crump Primary Care Unavailable Berry TRANSVERSE ABDOMINAL MUSCLE SURGEON, Sandra Attending Unavailable Allergies Allergy Classification Reported Allergen(s) Allergy Type Date of Onset Reaction(s) Facility (15 sources) morphine; Translations: [morphine] Drug Allergy 09-08-2016 nausea/vomiting, DOESN'T WORK WELL FOR PT-FEEL FUNNY [employer] Work Phone: [phone] (4 sources) NKDA drug allergy 04-28-2014 [employer] Work Phone: [phone] Medications Current Medications Medication Drug Class(es) Dates Sig (Normalized) Sig (Original) Acapella (4 sources) Start: 10-19-2023 Acapella Active 0 .ROUTE .MEDSUPPLY 1 0 August 23, 2023 12:00am Bronchiectasis, uncomplicated Pulmonary toileting As directed Start: 08-23-2023 Acapella Activ e 0 .ROUTE .MEDSUPPLY 1 August 23, 2023 12:00am As directed [id number] 200 actuat albuterol 0.09 mg/actuat metered dose inhaler (1 source) beta2-Adrenergic Agonist Start: 03-10-2024 Albuterol Sulfate (Ventolin Hfa) 90 mcg/actuation HFA aerosol inhaler Active 2 NMA INHALATION Q4H as needed for shortness of breath or wheezing 22 04March 10, 2024 12:00am Daytime hypersomnia Hypersomnia, unspecified ezetimibe 10 mg / simvastatin 20 mg oral tablet (20 sources) HMG-CoA Reductase Inhibitor, Dietary Cholesterol Absorption Inhibitor Start: 08-25-2016 End: 05-16-2023 take 1 tablet by mouth once daily Ezetimibe-Simvasta tin Discontinued 0 .ROUTE .COMPLEX 90 May 17, 2022 7:59am May 16, 2023 1:49pm TAKE 1 TABLET BY MOUTH EVERY DAY Start: 03-17-2011 End: 05-06-2025 take 1 tablet by mouth once daily Ezetimibe-Simvastatin 10-20 mg tablet Active 0 .ROUTE .COMPLEX 90 May 06, 2025 12:46pm TAKE 1 TABLET BY MOUTH EVERY DAY Completed/Discontinued Medications Medication Drug Class(es) Dates Sig (Normalized) Sig (Original) acetaminophen 500 mg oral tablet (20 sources) Start: 05-25-2017 End: 12-26-2022 take 2 tablets by mouth every eight hours Acetaminophen 500 MG tablet Discontinued 1000 mg PO EVERY 8 HOURS 90 0 May 25, 2017 12:00am December 26, 2022 2:38pm TAKE EVERY 8 HOURS SCHEDULED Start: 05-25-2017 End: 12-26-2022 take 1000 mg by mouth every eight hours Acetaminophen Discontinued 1000 MG PO EVERY 8 HOURS 90 May 25, 2017 12:00am December 26, 2022 2:38pm TAKE EVERY 8 HOURS SCHEDULED Start: 09-21-2016 End: 01-04-2017 take 2 tablets by mouth every six hours as needed for pain Acetaminophen (Tylenol) 325 MG tablet Discontinued 650 mg PO EVERY 6 HOURS as needed for Pain December 25, 2016 3:41pm January 04, 2017 9:43am acetaminophen 300 mg / codeine phosphate 30 mg oral tablet (4 sources) Opioid Agonist Start: 05-14-2015 End: 09-08-2016 ACETAMINOPHEN-CODEINE #3 300-30 MG TABS One tablet by mouth at night ACETAMINOPHEN-CODEINE [id number] Carlos Gray MD amLODIPine 5 mg oral tablet (20 sources) Dihydropyridine Calcium Channel Daljit Start: 02-12-2025 End: 02-12-2025 take 2 tablets by mouth once daily Amlodipine 5 mg tablet Discontinued 10 mg PO DAILY February 12, 2025 1:22pm February 12, 2025 1:26pm Start: 02-12-2025 take 1 tablet by sara th once daily Amlodipine 10 mg tablet Active 10 mg PO daily 90 February 12, 2025 12:00am Start: 12-25-2023 End: 02-12-2025 take 1 tablet by mouth once daily Amlodipine 5 mg tablet Discontinued 5 mg PO DAILY January 13, 2025 4:00pm February 12, 2025 1:22pm Start: 05-17-2022 End: 12-25-2023 take 1 tablet by mouth once daily Amlodipine Discontinued 0 .ROUTE .COMPLEX 90 May 16, 2023 1:49pm December 25, 2023 2:39pm TAKE 1 TABLET BY MOUTH EVERY DAY Start: 10-27-2021 End: 10-27-2021 take 2 tablets by mouth once daily Amlodipine 2.5 mg tablet Discontinued 5 mg PO DAILY October 27, 2021 12:25pm October 27, 2021 12:55pm Start: 10-27-2021 End: 10-27-2021 take 5 mg by mouth once daily Amlodipine Discontinued 5 MG PO DAILY October 27, 2021 12:25pm October 27, 2021 12:55pm Start: 08-09-2012 End: 12-25-2023 take 1 tablet by mouth once daily Amlodipine 2.5 mg tablet Discontinued 0 .ROUTE .COMPLEX 90 May 16, 2023 1:49pm December 25, 2023 2:39pm TAKE 1 TABLET BY MOUTH EVERY DAY Start: 03-17-2011 take 1 tablet by sara th once daily NORVASC 5 MG TABS One half tablet by mouth daily AMLODIPINE BESYLATE [id number] Carlos Gray MD amoxicillin 875 mg / clavulanate 125 mg oral tablet (1 source) Penicillin-class Antibacterial Start: 04-14-2024 End: 04-21-2024 Amoxicillin-Pot Clavulanate 875-125 mg tablet Discontinued 1 {tbl} PO Q12H 14 7 0 April 14, 2024 12:00am April 20, 2024 12:00am April 21, 2024 12:06am ascorbic acid 500 mg oral tablet (15 sources) Vitamin C Start: 12-26-2022 End: 12-25-2023 take 1 tablet by mouth twice daily Ascorbic Acid (Vitamin C) 500 mg tablet Discontinued 500 mg PO TWICE A DAY December 26, 2022 1:00am December 25, 2023 2:33pm take 2 capsules by mouth once da sheron Vitamin C 500 MG Oral Capsule TAKE 2 CAPSULE Daily Quantity: 0 Refills: 0 Ordered: 15-Nov-2022 DO Active aspirin 81 mg delayed release oral tablet (20 sources) Nonsteroidal Anti-inflammatory Drug Start: 09-10-2018 End: 09-16-2019 Aspirin (Adult Low Dose Aspirin) 81 mg tablet,delayed release (DR/EC) Discontinued 81 mg PO DAILY September 10, 2018 1:00am September 16, 2019 10:26am Start: 05-25-2017 End: 09-10-2018 take 1 tablet by mouth twice daily at mealtime Aspirin 325 MG tablet Discontinued 325 mg PO TWICE DAILY WITH MEALS 30 0 May 25, 2017 12:00am September 10, 2018 9:51am DVT PROPHYLAXIS FOR 4 WEEKS Start: 05-14-2017 End: 05-25-2017 take 1 tablet by mouth once daily Aspirin 81 MG Tablet.Dr Discontinued 81 mg PO DAILY May 14, 2017 12:00am May 25, 2017 7:29am Start: 03-17-2011 End: 02-11-2015 take 1 tablet by mouth once daily ASPIRIN 81 MG TABS One tablet by mouth daily ASPIRIN [id number] Arnol Prince azithromycin 250 mg oral tablet (2 sources) Macrolide Antimicrobial Start: 06-14-2015 End: 06-19-2015 take 2 tablets by mouth once, then take 1 tablet by mouth once daily, then take 2-5 tablets by mouth AZITHROMYCIN 250 MG TABS 2 PO on day 1 then 1 PO daily on days 2-5 AZITHROMYCIN [id number] Otoniel Cai Jesus Citric Acid 08414 MG / Magnesium Oxide 3500 MG / picosulfate sodium 10 MG Powder for Oral Solution (2 sources) Start: 02-11-2015 End: 02-12-2015 PREPOPIK 10-3.5-12 MG-GM-GM PACK use as per instructions SOD PICOSULFATE-MAG OX-CIT ACD [id number] Rubi Moreau docusate sodium 50 mg / sennosides, assisted 8.6 mg oral tablet (12 sources) Start: 05-25-2017 End: 09-10-2018 Sennosides-Docusat e Sodium 1 TABLET tablet Discontinued 2 {tbl} PO TWICE A DAY 0 May 25, 2017 12:00am September 10, 2018 9:53am TAKE UNTIL FIRST BOWEL MOVEMENT, THEN NEEDED Start: 05-25-2017 End: 09-10-2018 Sennosides-Docusate Sodium D iscontinued 2 TABLET PO TWICE A DAY May 25, 2017 12:00am September 10, 2018 9:53am TAKE UNTIL FIRST BOWEL MOVEMENT, THEN NEEDED etodolac 300 mg oral capsule (4 sources) Nonsteroidal Anti-inflammatory Drug Start: 04-28-2014 End: 09-08-2016 take 1 tablet by mouth once daily ETODOLAC 300 MG CAPS (Lodine) One tablet by mouth daily ETODOLAC [id number] Otoniel Cai Jesus famotidine 20 mg oral tablet (20 sources) Histamine-2 Receptor Antagonist Start: 05-25-2017 End: 12-26-2022 take 1 tablet by mouth once daily Famotidine 20 mg tablet Discontinued 20 mg PO DAILY September 10, 2018 9:53am September 16, 2019 10:26am ferrous sulfate 325 mg oral tablet (12 sources) Start: 05-25-2017 End: 09-10-2018 Ferrous Sulfate 325 MG tablet Discontinued 325 mg PO TWICE DAILY WITH MEALS 0 May 25, 2017 12:00am September 10, 2018 9:52am TAKE FOR 1 WEEK POST-OP THEN MAY STOP 120 actuat fluticasone propionate 0.044 mg/actuat metered dose inhaler (16 sources) Corticosteroid Start: 09-10-2018 End: 12-26-2022 Fluticasone Propionate (Flovent Hfa) 44 mcg/actuation HFA aerosol inhaler Discontinued 1 NMA INHALATION TWICE A DAY September 10, 2018 1:00am December 26, 2022 2:39pm Start: 09-10-2018 End: 12-26-2022 Fluticasone Propionate (Flov ent Hfa) 44 mcg/actuation HFA aerosol inhaler Discontinued 1 INH INHALATION TWICE A DAY September 10, 2018 1:00am December 26, 2022 2:39pm Start: 02-11-2015 End: 09-08-2016 take 2 spray(s) nasal route once daily FLUTICASONE PROPIONATE 50 MCG/ACT SUSP Two sprays each nostril daily FLUTICASONE PROPIONATE [id number] Otoniel Lee DO folic acid 1 mg oral tablet (12 sources) Start: 05-25-2017 End: 09-10-2018 Folic Acid 1 MG tablet Discontinued 1 mg PO TWICE DAILY WITH MEALS 0 0 May 25, 2017 12:00am September 10, 2018 9:52am TAKE FOR 1 WEEK POST-OP THEN MAY STOP methenamine mandelate 1000 mg oral tablet (15 sources) Start: 10-01-2022 End: 12-25-2023 Methenamine Mandelate 1 gram tablet Discontinued 1 g PO TWICE A DAY December 26, 2022 1:00am December 25, 2023 2:34pm 120 actuat mometasone furoate 0.22 mg/actuat dry powder inhaler (4 sources) Corticosteroid Start: 05-26-2015 End: 09-08-2016 ASMANEX 120 METERED DOSES 220 MCG/INH AEPB 1 inhalation every night MOMETASONE FUROATE [id number] Otoniel Ayala Lee DO montelukast 10 mg oral tablet (14 sources) Leukotriene Receptor Antagonist Start: 08-25-2016 End: 10-27-2021 take 1 tablet by mouth at bedtime Montelukast 10 MG tablet Discontinued 10 mg PO AT BEDTIME August 25, 2016 12:00am October 27, 2021 12:26pm MULTIPLE VITAMIN (4 sources) Start: 03-17-2011 End: 09-08-2016 take 1 tablet by mouth once daily MULTIVITAMINS TABS One tablet by mouth daily MULTIPLE VITAMIN [id number] Carlos Gray MD Start: 03-17-2011 take 1 tablet by sara th once daily MULTIVITAMINS TABS One tablet by mouth daily MULTIPLE VITAMIN [id number] Lisa Watson omeprazole 40 mg delayed release oral capsule (19 sources) Proton Pump Inhibitor Start: 12-05-2021 End: 12-25-2023 take 1 capsule by mouth once daily Omeprazole 40 mg capsule,delayed release(DR/EC) Discontinued 40 mg PO DAILY December 26, 2022 1:00am December 25, 2023 2:34pm Start: 05-14-2015 End: 09-08-2016 take 1 tablet by mouth once daily PRILOSEC 40 MG CPDR One tablet by mouth daily OMEPRAZOLE [id number] Carlos Gray MD oxyCODONE hydrochloride 5 mg oral tablet (12 sources) Opioid Agonist Start: 05-25-2017 End: 09-10-2018 take 5-10 mg by mouth every four hours as needed for pain Oxycodone 5 MG tablet Discontinued 5 - 10 mg PO EVERY 4 HOURS NEEDED as needed for Pain 30 0 May 25, 2017 12:00am September 10, 2018 9:53am predniSONE 50 mg oral tablet (4 sources) Corticosteroid Start: 06-14-2015 End: 06-19-2015 take 1 tablet by mouth once daily PREDNISONE 50 MG TABS one tablet PO daily for 5 days PREDNISONE [id number] Otoniel A Jesus DO Start: 05-14-2015 End: 05-24-2015 PREDNISONE 20 MG TABS 2 tabs x 3 days, 1 tab x 3 days, 1/2 tab x 4 days PREDNISONE [id number] Otoniel A Jesus DO sildenafil 50 mg oral tablet (4 sources) Phosphodiesterase 5 Inhibitor Start: 12-14-2014 End: 07-06-2015 VIAGRA 50 MG TABS 1/2 tab by mouth as needed for ED SILDENAFIL CITRATE [id number] Otoniel A Jesus DO tadalafil 20 mg oral tablet (2 sources) Phosphodiesterase 5 Inhibitor Start: 07-06-2015 CIALIS 20 MG TABS 1/2-1 tablet as needed every 3 days TADALAFIL [id number] Otoniel Ayala Lee DO 60 actuat tiotropium 0.92223 mg/actuat metered dose inhaler (4 sources) Anticholinergic Start: 02-10-2016 End: 09-08-2016 SPIRIVA RESPIMAT 1.25 MCG/ACT AERS 2 inhalations once daily TIOTROPIUM BROMIDE MONOHYDRATE [id number] Otoniel Ayala Lee DO Problems Active Problems Problem Classification Problem Date Documented Da te Episodic/Chronic Cardiac dysrhythmias (2 sources) Paroxysmal ventricular tachycardia; Translations: [Ventricular tachycardia] Onset: 1 03-17-2011 Chronic Chronic obstructive pulmonary disease and bronchiectasis (6 sources) Bronchiectasis; Translations: [Bronchiectasis, uncomplicated] 08-23-2023 Chronic Comment on above: Right Upper Lobe (CT 05/2023) Coronary atherosclerosis and other heart disease (20 sources) Atherosclerotic heart disease of [place] coronary artery without angina pectoris; 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] Onset: 1 09-08-2016 Chronic Disorders of lipid metabolism (18 sources) Hyperlipidemia; Translations: [Hyperlipidemia, unspecified] Onset: 1 03-17-2011 Chronic E Codes: Cut/pierceb (1 source) Contact with knife, initial encounter; Translations: [Contact with knife, initial encounter] Onset: 1 Episodic E Codes: Unspecified (1 source) Activity, food preparation and clean up; Translations: [Activity, food preparation and clean up] Onset: 1 Episodic Esophageal disorders (20 sources) Gastroesophageal reflux disease; Translations: [Esophageal reflux] Onset: 5 02-22-2015 Chronic Essential hypertension (20 sources) Hypertensive disorder; Translations: [Essential (primary) hypertension] Onset: 5 04-26-2015 Chronic Gastritis and duodenitis (1 source) Unspecified chronic gastritis without bleeding; Translations: [Unspecified chronic gastritis without bleeding] Onset: 3 Chronic Genitourinary symptoms and ill-defined conditions (9 sources) Microscopic hematuria; Translations: [History of urinary tract infection] Onset: 5 12-14-2014 Episodic Hyperplasia of prostate (2 sources) Benign prostatic hyperplasia; Translations: [Benign prostatic hyperplasia without lower urinary tract symptoms] Onset: 5 12-14-2014 Chronic Nutritional deficiencies (2 sources) Vitamin D deficiency; Translations: [Vitamin D deficiency] Onset: 5 12-14-2014 Chronic Open wounds of extremities (3 sources) Laceration without foreign body of right thumb without damage to nail, initial encounter; Translations: [Laceration without foreign body of right thumb without damage to nail, initial encounter] Onset: 1 Episodic Osteoarthritis (2 sources) Osteoarthritis of knee; Translations: [Osteoarthritis of knee, unspecified] Onset: 5 12-14-2014 Chronic Other circulatory disease (7 sources) H/O: cardiovascular disease; Translations: [Personal history of transient ischemic attack (TIA), and cerebral infarction without residual deficits] Episodic Other gastrointestinal disorders (4 sources) Dysphagia; Translations: [Dysphagia, unspecified] Episodic Other lower respiratory disease (12 sources) Chronic cough; Translations: [Chronic cough] Onset: 5 05-14-2015 Episodic Other lower respiratory disease (2 sources) Dyspnea on exertion; Translations: [Shortness of breath] 06-23-2025 Episodic Other lower respiratory disease (2 sources) Shortness of breath; Translations: [Shortness of breath] Onset: 5 Episodic Other nutritional; endocrine; and metabolic disorders (1 source) Obesity, unspecified; Translations: [Obesity, unspecified] Onset: 3 Chronic Other nutritional; endocrine; and metabolic disorders (1 source) Body mass index (BMI) 37.0-37.9, adult; Translations: [Body mass index [BMI] 37.0-37.9, adult] Onset: 3 Chronic Other nutritional; endocrine; and metabolic disorders (7 sources) H/O: metabolic disorder; Translations: [Personal history of other endocrine, metabolic, and immunity disorders] Episodic Other upper respiratory disease (2 sources) Allergic rhinitis; Translations: [Allergic rhinitis, unspecified] Onset: 5 12-14-2014 Chronic Pneumonia (except that caused by tuberculosis or sexually transmitted disease) (7 sources) Infectious disease of lung; Translations: [Other diseases of lung, not elsewhere classified] Episodic Residual codes; unclassified (2 sources) Mixed sleep apnea; Translations: [Other sleep apnea] 06-23-2024 Chronic Residual codes; unclassified (1 source) Daytime hypersomnia; Translations: [Hypersomnia, unspecified] 03-10-2024 Chronic Residual codes; unclassified (2 sources) Obstructive sleep apnea (adult) (pediatric); Translations: [Obstructive sleep apnea (adult) (pediatric)] Onset: 5 Chronic Residual codes; unclassified (1 source) Other sleep apnea; Translations: [Other sleep apnea] Onset: 5 Chronic Residual codes; unclassified (1 source) Acquired absence of other specified parts of digestive tract; Translations: [Acquired absence of other specified parts of digestive tract] Onset: 1 Episodic Superficial injury; contusion (1 source) Splinter in foot; Translations: [Superficial foreign body, right foot, initial encounter] 04-14-2024 Episodic Unclassified (4 sources) Body mass index (BMI) 34.0-34.9, adult; Translations: [Body mass index (BMI) 35.0-35.9, adult] Onset: 4 04-28-2014 Chronic Unclassified (2 sources) Male erectile disorder; Translations: [Male erectile disorder] Onset: 5 12-14-2014 Chronic Unclassified (2 sources) Long-term drug therapy; Translations: [Other chcf (current) drug therapy] Onset: 1 03-17-2011 Unclassified (2 sources) Preoperative cardiovascular examination ; Translations: [Encounter for preprocedural cardiovascular examination] Onset: 6 09-08-2016 Unclassified (2 sources) Screening for malignant neoplasm of colon ; Translations: [Encounter for screening for malignant neoplasm of colon] Onset: 5 12-14-2014 Past or Other Problems Problem Classification Problem Date Documented Date Episodic/Chronic Acute bronchitis (2 sources) Acute bronchitis; Translations: [Acute bronchitis, unspecified] Onset: 06-14-2015 Resolved: 06-21-2015 06-14-2015 Episodic Cardiac dysrhythmias (2 sources) Palpitations; Translations: [Palpitations] Onset: 03-17-2011 03-17-2011 Episodic Immunizations and screening for infectious disease (2 sources) Encounter for immunization; Translations: [Encounter for immunization] Onset: 12-20-2015 Resolved: 12-25-2015 12-20-2015 Episodic Nonspecific chest pain (4 sources) Chest pain, unspecified; Translations: [Chest pain, unspecified] Onset: 08-08-2012 Resolved: 12-14-2014 12-14-2014 Episodic Other connective tissue disease (2 sources) Pain in left lower limb; Translations: [Pain in left leg] Onset: 12-14-2014 12-14-2014 Episodic Unclassified (2 sources) Abnormal result of cardiovascular function study, unspecified; Translations: [Abnormal result of cardiovascular function study, unspecified] Onset: 03-17-2011 03-17-2011 Episodic Results Test Name Value Interpretation Reference Range Facility Echo Complete W/ Contraston 07-23-2025 Echo Complete W/ Contrast [facility] [address] [place] [address] Echo Complete W/ Contrast 07/23/25 1404 MR#: [id number] Acct: [id number] Name: CHUCK JASON Rep #: [id number] : [id number] 80 From: Carlos Gray MD Attending Dr: Sandra Berry, TRANSVERSE ABDOMINAL MUSCLE SURGEON-C Status: RE G CLI Ordering Dr: Sandra Berry TRANSVERSE ABDOMINAL MUSCLE SURGEON TRANSVERSE ABDOMINAL MUSCLE SURGEON-C Date: Location: [facility] Sex: M C Admitted: Reason For Study Reason For Study: DYSPNEA/SOB Procedure This was a 2D Doppler, Color Flow transthoracic echocardiogram. The study was technically difficult. Due to body habitus. Contrast injection was performed. Exam performed in department. Left Ventricle Normal LV size. Left ventricular systolic function is normal. The left ventricular ejection fraction is 65 %. No regional wall motion abnormalities noted. Right Ventricle Normal RV size. Normal systolic function. Atria Normal left atrium. Normal right atrium. Mitral Valve Normal mitral valve. Tricuspid Valve Normal tricuspid valve. Mild (1+) tricuspid valve insufficiency. Pulmonary artery systolic pressure is 30 mmHg. Aortic Valve Trisinus/trileaflet aortic valve. Pulmonic Valve Normal pulmonic valve. Great Vessels Normal aortic root. The pulmonary artery is normal size. Inferior vena cava collapse with respiration. Pericardium/Pleural No pericardial effusion. Medication 22 gauge I.V. with prn adaptor inserted into left arm. Diluted definity 2.0ml given slow IV push to enhance endocardial definition. MMode/2D Measurements Calculations LVIDd: 4.9 cm IVSd: 1.1 cm Ao root diam: 3.4 cm LVIDs: 3.5 cm LVPWd: 1.2 cm RVDd: 3.0 cm FS: 28.9 % asc Aorta Diam: 3.5 cm LAV(MOD-bp): 46.9 ml LVAd ap4: 14.4 cm2 LAV(MOD-bp) Indexed: 21.1 ml/m2 LVLd ap4: 5.3 cm LAV(MOD-sp2): 46.8 ml EDV(MOD-sp4): 33.8 ml LAV(MOD-sp4): 38.4 ml EDV(sp4-el): 33.0 ml LVAs ap4: 7.8 cm2 LVLs ap4: 4.4 cm ESV(MOD-sp4): 12.3 ml ESV(sp4-el): 11.7 ml EF(MOD-sp4): 63.7 % EF(sp4-el): 64.7 % SV(MOD-sp4): 21.5 ml SV(sp4-el): 21.4 ml LA A4 area: 14.6 cm2 SI(MOD-sp4): 9.7 ml/m2 LA dimension(2D): 3.9 cm RA A4 area: 10.8 cm2 TAPSE: 2.3 cm Time Measurements MV dec time: 0.25 sec Doppler Measurements Calculations MV E max guero: 82.8 cm/sec Lat Peak E' Guero: 10.4 cm/sec Med Peak E' Guero: 8.1 cm/sec MV A max guero: 101.1 cm/sec E/E' lat: 8.0 E/E' med: 10.2 MV E/A: 0.82 MV V2 max: 106.8 cm/sec MV P1/2t max guero: 91.1 cm/sec Ao V2 max: 136.1 cm/sec MV max P.6 mmHg MV P1/2t: 70.0 msec Ao max P.4 mmHg MV V2 mean: 49.5 cm/sec MV dec slope: 381.1 cm/sec2 Ao V2 mean: 98.5 cm/sec MV mean P.2 mmHg MVA(P1/2t): 3.1 cm2 Ao mean P.2 mmHg MV V2 VTI: 30.9 cm Ao V2 VTI: 27.9 cm AV (velocity ratio): 0.79 LV V1 max: 101.3 cm/sec PA V2 max: 100.0 cm/sec TR max guero: 262.4 cm/sec LV V1 max P.1 mmHg PA V2 mean: 64.7 cm/sec TR max P.6 mmHg LV V1 mean P.4 mmHg LV V1 mean: 74.7 cm/sec LV V1 VTI: 22.1 cm ECHO/Echo Complete W/ Contrast Interpretation Summary Normal LV size. Left ventricular systolic function is normal. The left ventricular ejection fraction is 65 %. Pulmonary artery systolic pressure is 30 mmHg. Contrast injection was performed. Ordering Physician: Sandra Berry Referring Physician: Otoniel Lee Performed By: Yvonne Garcia, JIE, RVT 07/23/251656 Date Carlos Gray MD CC: [email or web address] Berry; Dr. Otoniel Lee DO Date Dictated: 07/23/25 1404 Date Transcribed: 07/23/251656 Business Development Associate: Signed Normal [facility] Pulmonary Visit Reporton Pulmonary Visit Report [facility] [place] [address] [place] [address] OFFICE VISIT Date of Service: 06/23/25 MR#: [id number] Acct: [id number] Name: CHUCK JASON Rep #: [id number] : 1945 Provider: KENYATTA Berry Age/Sex: 80/M Location: [facility] [place].PMW Status: Signed Assessment and Plan Assessment and Plan (1) Mixed sleep apnea: Status: Chronic Plan: He is using and benefiting from Pap therapy, however he is not feeling rested and reports that he lays awake a lot at night. I believe this is likely skewing his residual AHI on the compliance report, showing a relatively controlled AHI when he likely has suboptimal control. He is agreeable to a titration study. Given that he has known and mixed apnea, he may require an ASV titration. Performing an echocardiogram to prepare in case an ASV titration is indicated. Continue with current settings until titration study results are available, allowing me to make new recommendations. Contact the office for any new or worsening symptoms in the meantime. Follow-up in 3 months. (2) Bronchiectasis: Status: Chronic Qualifiers: Bronchiectasis type: uncomplicated Qualified Code(s): J47.9 - Bronchiectasis, uncomplicated Comment: Right Upper Lobe (CT 05/2023) Plan: Symptomatically stable. No additional testing at this time. (3) Shortness of breath on exertion: Status: Acute Plan: Sending for an echocardiogram to evaluate. Will discuss test results at the 3-month follow-up. He has been encouraged to contact the office if his symptoms progress in the meantime. Orders: Orders Polysomnography with PAP Today G47.33 - Obstructive sleep apnea (adult) (pediatric), G47.39 - Other sleep apnea Echo Complete W/ Contrast Today R06.02 - Shortness of breath Plan Details Additional Comments: This note was generated with Filao dictation software. It may contain incorrect words, spelling, and punctuation that were not noted in checking the note before signing. Follow Up: 3 Months HPI 6 M FU Chief Complaint: Routine follow-up HPI Comments Details: This patient presents to the office today for follow-up of his bronchiectasis and obstructive sleep apnea. He is ambulatory and currently on room air. He has not recently been seen in the ED or urgent care for any respiratory illness. He has not required any antibiotics or prednisone for any breathing problems. If you recall, he is a lifelong never smoker. He has not recently need the albuterol for rescue. He rarely uses his Acapella device. He denies any shortness of breath. His cough is rare and nonproductive. He denies any hemoptysis. He denies any wheezing, chest tightness, chest pain or palpitations. He has not had any fever, chills or body aches. He wakes up feeling somewhat rested and refreshed. However, he admits that he feels as though he spends a lot of the night lying awake with his PAP machine on. He is not having difficulty with dry mouth. He naps 20 to 30 minutes 2 or 3 times a week. He is not having headaches. He is not having excessive nocturia. Compliance report for the past 30 days shows 100% compliance with average use of 8 hours and 36 minutes per night. Current setting is AutoPap 8 to 16 cm of water pressure typically being utilized at 10 to 15 cm of water. Residual AHI 4.7 events per hour with 2.2 events per hour of central nature. Leaks do not appear to be problematic. Intake Vital Signs 12/25/24 08:17 06/23/25 08:31 Height 5 ft 8 in 5 ft 8 in Weight: 253 lb 246 lb 8 oz BMI 38.5 37.5 BP 158/62 H 138/65 H Blood Pressure Location Lt brachial Lt brachial Position Sitting Sitting Respiration 18 18 Pulse 65 70 Pulse Source Monitor Monitor Temp 97.3 F L 97.4 F L Temperature Source Temporal Artery Temporal Artery Pulse Oximetry (%) 98 97 Oxygen Delivery Method room air room air Intake Visit Reasons: 6 M FU Chief Complaint: splinter in RT foot for over a week Director Of Occupational Therapy Required: No DME Vendor: evy Accompanied by: Self Allergies morphine Adverse Reaction (Verified 06/23/25 13:03) DOESN'T WORK WELL FOR PT-FEEL FUNNY Medications ???Medication ???Instructions ???Recorded ???Confirmed ???Type Acapella #1 ea 08/23/23 06/23/25 Rx albuterol sulfate 90 mcg/actuation 2 puff inhalation Q4H PRN 06/23/25 Rx aerosol inhaler (Ventolin HFA) shortness of breath or wheezing #18 grams amlodipine 10 mg tablet 10 mg PO QDAY #90 tabs 02/12/25 Rx ezetimibe 10 mg-simvastatin 20 mg See Rx Instructions .Route 06/23/25 Rx tablet .COMPLEX #90 tabs Have you fallen in the past year?: [facility] (Reviewed 06/23/25 @ 13:10 by Sandra Berry TRANSVERSE ABDOMINAL MUSCLE SURGEON, TRANSVERSE ABDOMINAL MUSCLE SURGEON-C) GERD (gastroesophageal reflux disease) Brain aneurysm Non-hines (more content not included)... Normal [facility] Cardiology Visit Reporton Cardiology Visit Report [facility] [address] [place] [address] OFFICE VISIT Date of Service: 02/12/25 MR#: [id number] Acct: [id number] Name: CHUCK JASON Rep #: [id number] : 1945 Provider: Dr. Carlos Gray MD Age/Sex: 80/M Location: [facility] [place] Status: Signed HPI HPI History of Present Illness Details: CHUCK JASON, is a 80 M who presents to the office today for a follow-up visit. He is a gentleman with a history of hypertension and hyperlipidemia. He underwent a heart catheterization on 05/02/2007 that showed LAD had 60 to 70% narrowing in which spasm could not be excluded. He underwent a stress test on 10/04/2020 that was considered to be a normal exercise myocardial perfusion stress test at a low to moderate workload. He denies chest, arm, jaw, or neck discomfort. He denies palpitations. He denies bilateral lower extremity edema. He denies claudication. He denies shortness of breath with activity, shortness of breath at rest, orthopnea, or PND. He denies chronic cough. He denies significant, sudden weight gain. He denies lightheadedness, dizziness, near-syncope, or syncope. He denies blood in urine, blood in stool, or epistaxis. He denies fever with chills. He denies myalgia. He denies fatigue. His exercise level has remained stable though limited by orthopedic issues. Intake Vital Signs 12/25/23 13:28 12/25/24 08:17 02/12/25 13:07 Height 5 ft 8 in 5 ft 8 in 5 ft 8 in Weight: 256 lb BMI 38.9 BP 139/70 H Blood Pressure Location Lt brachial Position Sitting Respiration 16 Pulse 68 Pulse Source Monitor Intake Visit Reasons: 1 Y FU Director Of Occupational Therapy Required: No Accompanied by: Self Is patient in pain?: No Allergies morphine Adverse Reaction (Verified 02/12/25 13:21) DOESN'T WORK WELL FOR PT-FEEL FUNNY Medications ???Medication ???Instructions ???Recorded ???Confirmed ???Type Acapella #1 ea 08/23/23 12/25/24 Rx albuterol sulfate 90 mcg/actuation 2 puff inhalation Q4H PRN 02/12/25 Rx aerosol inhaler (Ventolin HFA) shortness of breath or wheezing #18 grams ezetimibe 10 mg-simvastatin 20 mg See Rx Instructions .Route 02/12/25 Rx tablet .COMPLEX #90 tabs amlodipine 10 mg tablet 10 mg PO QDAY #90 tabs 02/12/25 Rx Have you fallen in the past year?: No PFSH Medical History GERD (gastroesophageal reflux disease) Brain aneurysm Non-sustained ventricular tachycardia (04/2007) Essential (primary) hypertension Atherosclerosis of coronary artery of [place] heart without angina pectoris HLD (hyperlipidemia) Surgical History History of arthroplasty of left knee (2016) History of left heart catheterization (05/02/07) History of lobectomy of lung H/O craniotomy History of cholecystectomy Family History Grandfather Heart disease Social History Smoking Status: Never smoker alcohol intake: never substance use type: does not use caffeine: Yes Type: coffee ROS Const Const: Negative for fatigue, weakness, headache(s), daytime sleepiness or difficulty sleeping ENT ENT: Negative for headache(s), dizziness or Nosebleed/epistaxis Cardio Chest Pain: No Palpitations: No Edema: None Resp Respiratory: Negative for SOB with activity, SOB at rest, SOB orthopnea SOB lying down or Cough GI GI: Negative nausea, vomiting or heartburn Neuro Neuro: Negative for dizziness, lightheadedness, near syncope, headache(s) or weakness Endo Endo: Negative for fatigue Cardiology Exam Const Appearance: cooperative, healthy appearing, comfortable and no acute distress Nutritional Appearance: average body habitus and well nourished Orientation: alert, awake and oriented x3 Head Head: normal to inspection Ears: hearing grossly normal bilaterally Nose: external nose normal Face and Sinus: face symmetric Mouth: moist mucous membranes Eyes General: appearance normal, both eyes and all related structures Eyelids: eyelids normal EOM: EOM intact bilaterally Neck Neck: normal visual inspection and no JVD Carotids: normal carotid upstroke Chest Chest inspection: normal inspection of the chest, symmetric chest movement and normal respiratory effort; Negative cough Auscultation: Bilateral: Clear to Auscultation Cardio Rate: regular rate Rhythm: regular rhythm Heart sounds: S1 normal and S2 normal; Negative rub, gallop or murmur GI GI: normal to inspection Neuro General: patient alert, patient awake, patient oriented x3 and CN's II-XI intact bilaterally Skin Skin: no rashes or lesions noted Extremities Pulses (more content not included)... Normal [facility] Pulmonary Visit Reporton Pulmonary Visit Report [facility] [place] [address] [place] [address] OFFICE VISIT Date of Service: 12/25/24 MR#: [id number] Acct: [id number] Name: CHUCK JASON Rep #: [id number] : 1945 Provider: KENYATTA Berry Age/Sex: 79/M Location: [facility] [place].W Status: Signed Assessment and Plan Assessment and Plan (1) Mixed sleep apnea: Status: Chronic Plan: He is using and benefiting from Pap therapy. Residual AHI only slightly elevated. No indication for titration study at this time. Contact the office for any new or worsening symptoms in the meantime. Follow-up in 6 months. (2) Bronchiectasis: Status: Chronic Qualifiers: Bronchiectasis type: uncomplicated Qualified Code(s): J47.9 - Bronchiectasis, uncomplicated Comment: Right Upper Lobe (CT 05/2023) Plan: Symptomatically stable. No additional testing at this time. HPI 6 M FU Chief Complaint: Routine follow-up HPI Comments Details: This patient presents to the office today for follow-up of his bronchiectasis and obstructive sleep apnea. He is ambulatory and currently on room air. He has not recently been seen in the ED or urgent care for any respiratory illness. He has not required any antibiotics or prednisone for any breathing problems. He has not recently need the albuterol for rescue. He has not recently used his Acapella device. He denies any shortness of breath. His cough is rare and nonproductive. He admits that he believes his cough has improved since starting PAP therapy. He denies any hemoptysis. He denies any wheezing, chest tightness, chest pain or palpitations. He has not had any fever, chills or body aches. He wakes up feeling rested and refreshed with use of his PAP device. He is not having difficulty with dry mouth. He does not require naps. He is not having headaches. He is not having excessive nocturia. If you recall, he is a lifelong never smoker. Test results personally reviewed with patient: Compliance report for the past 30 days shows 100% compliance with average use of 8 hours and 40 minutes per night. Current setting is AutoPap 8 to 16 cm of water pressure typically being utilized at 10 to 15 cm of water. Residual AHI 6.5 events per hour. Leaks do not appear to be problematic. Intake Vital Signs 06/23/24 10:27 12/25/24 08:17 Height 5 ft 8 in 5 ft 8 in Weight: 253 lb BMI 38.5 BP 158/62 H Blood Pressure Location Lt brachial Position Sitting Respiration 18 Pulse 65 Pulse Source Monitor Temp 97.3 F L Temperature Source Temporal Artery Pulse Oximetry (%) 98 Oxygen Delivery Method room air Intake Visit Reasons: 6 M FU Chief Complaint: splinter in RT foot for over a week Director Of Occupational Therapy Required: No DME Vendor: Evy Accompanied by: Self Allergies morphine Adverse Reaction (Verified 12/25/24 13:04) DOESN'T WORK WELL FOR PT-FEEL FUNNY Medications ???Medication ???Instructions ???Recorded ???Confirmed ???Type Acapella #1 ea 08/23/23 12/25/24 Rx amlodipine 5 mg tablet 5 mg PO DAILY #90 tabs 12/25/23 Rx albuterol sulfate 90 mcg/actuation 2 puff inhalation Q4H PRN 12/25/24 Rx aerosol inhaler (Ventolin HFA) shortness of breath or wheezing #18 grams ezetimibe 10 mg-simvastatin 20 mg See Rx Instructions .Route 12/25/24 Rx tablet .COMPLEX #90 tabs Have you fallen in the past year?: No PFSH Medical History (Reviewed 12/25/24 @ 13:16 by Sandra Berry TRANSVERSE ABDOMINAL MUSCLE SURGEON, TRANSVERSE ABDOMINAL MUSCLE SURGEON-C) GERD (gastroesophageal reflux disease) Brain aneurysm Non-sustained ventricular tachycardia (04/2007) Essential (primary) hypertension Atherosclerosis of coronary artery of [place] heart without angina pectoris HLD (hyperlipidemia) Surgical History (Reviewed 12/25/24 @ 13:16 by Sandra Berry TRANSVERSE ABDOMINAL MUSCLE SURGEON, TRANSVERSE ABDOMINAL MUSCLE SURGEON-C) History of arthroplasty of left knee (2016) History of left heart catheterization (05/02/07) History of lobectomy of lung H/O craniotomy History of cholecystectomy Family History (Reviewed 12/25/24 @ 13:16 by Sandra Berry TRANSVERSE ABDOMINAL MUSCLE SURGEON, TRANSVERSE ABDOMINAL MUSCLE SURGEON-C) Grandfather Heart disease Social History (Reviewed 12/25/24 @ 13:16 by Sandra Berry TRANSVERSE ABDOMINAL MUSCLE SURGEON, TRANSVERSE ABDOMINAL MUSCLE SURGEON-C) Smoking Status: Never smoker alcohol intake: never substance use type: does not use caffeine: Yes Type: coffee Review of Systems Resp Respiratory: Yes as per HPI Exam Const Constitutional: Positive conversant, cooperative, in no acute respiratory distress, well developed, well nourished and obese Head Head: Yes normocephalic, Yes atraumatic and No cyanosis of lips/distal nose Eyes Eye: Positive clear conjunctiva Disconjugate gaze Ears Ear: Positive hearing normal and external ears normal Nose Nose: Yes external nose normal Mouth Mouth: Positive oral mucosae normal Neck Neck: Positiv (more content not included)... Normal [facility] Basic Metabolic Profile (BMP )on 10-15-2024 BUN/CRE 10.6 RATIO Normal 08-24 [facility] Comment on above: Performed By: #### L 500.2500, L100.0100 #### [facility] [address] [place], [address] CA,Total 9.4 mg/dL Normal 8.5-10.1 [facility] Comment on above: Performed By: #### L 500.2500, L100.0100 #### [facility] [address] [place], [address] Chloride [Moles/Vol] 110 mmol/L High 98-107 [facility] Comment on above: Performed By: #### L 500.2500, L100.0100 #### [facility] [address] [place], [address] CO2 [Moles/Vol] 28.0 mmol/L Normal 21.0-32.0 [facility] Comment on above: Performed By: #### L 500.2500, L100.0100 #### [facility] [address] [place], [address] Creatinine [Mass/Vol] 1.32 mg/dL High 0.70-1.[address] [facility] Comment on above: Result Comment: The validity of the calculated GFR GFRAA in patients over 70 years has not been determined. Clinical correlation is essential. Performed By: #### L 500.2500, L100.0100 #### [facility] [address] [place], [address] EST GFR - AA 67 mL/min Normal >60 [facility] Comment on above: Result Comment: Afri can [facility] GFR Calc Performed By: #### L 500.2500, L100.0100 #### [facility] [address] [place], [address] GAP 4 Low 5-15 [facility] Comment on above: Performed By: #### L 500.2500, L100.0100 #### [facility] [address] [place], [address] GFR/1.73 sq M.predicted among non-blacks MDRD (S/P/Bld) [Vol rate/Area] 56 mL/min/{1.73_m2} Low >60 [facility] Comment on above: Result Comment: Non- GFR Calc Performed By: #### L 500.2500, L100.0100 #### [facility] [address] [place], [address] Glucose [Mass/Vol] 101 mg/dL Normal 74-106 [facility] Comment on above: Result Comment: Fast ing Glucose result from 100 to 125 mg/dL suggests IMPAIRED HOMEOSTASIS per A.D.A. criteria. Performed By: #### L 500.2500, L100.0100 #### [facility] [address] [place], [address] Potassium [Moles/Vol] 4.2 mmol/L Normal 3.5-5.[address] [facility] Comment on above: Performed By: #### L 500.2500, L100.0100 #### [facility] [address] [place], [address] Sodium [Moles/Vol] 142 mmol/L Normal 136-145 [facility] Comment on above: Performed By: #### L 500.2500, L100.0100 #### [facility] [address] [place], [address] Urea nitrogen [Mass/Vol] 14 mg/dL Normal 7-18 [facility] Comment on above: Performed By: #### L 500.2500, L100.0100 #### [facility] [address] [place], [address] CBC W/Diff, Automatedon 12- Absolute Lymph 1.56 X10 3/uL Normal 0.83-4.51 [facility] Comment on above: Performed By: #### L 500.2500, L100.0100 #### [facility] [address] [place], [address] Absolute Neut 3.5 X10 3/uL Normal 2.0-7.7 [facility] Comment on above: Performed By: #### L 500.2500, L100.0100 #### [facility] [address] [place], [address] Basophils/100 WBC (Bld) 0.7 % Normal 0-1 [facility] Comment on above: Performed By: #### L 500.2500, L100.0100 #### [facility] [address] [place], [address] Eosinophils/100 WBC (Bld) 2.2 % Normal 0-5 [facility] Comment on above: Performed By: #### L 500.2500, L100.0100 #### [facility] [address] [place], [address] Erythrocyte distribution width (RBC) [Ratio] 13.0 % Normal 11.6-14.6 [facility] Comment on above: Performed By: #### L 500.2500, L100.0100 #### [facility] [address] [place], [address] Hematocrit (Bld) [Volume fraction] 49.9 % Normal 40-54 [facility] Comment on above: Performed By: #### L 500.2500, L100.0100 #### [facility] [address] [place], [address] Hemoglobin (Bld) [Mass/Vol] 16.8 g/dL High 13.0-16.5 [facility] Comment on above: Performed By: #### L 500.2500, L100.0100 #### [facility] [address] [place], [address] IG% 0.300 Normal 0.0-0.9 [facility] Comment on above: Result Comment: IG% - Immature Granulocytes (promyelocytes, myelocytes and metamyelocytes) > 1% indicates that a LEFT SHIFT is Present. Performed By: #### L 500.2500, L100.0100 #### [facility] [address] [place], [address] Lymphocytes/100 WBC (Bld) 26.5 % Normal 19-41 [facility] Comment on above: Performed By: #### L 500.2500, L100.0100 #### [facility] [address] [place], [address] MCH (RBC) [Entitic mass] 30.2 pg Normal 27.0-32.0 [facility] Comment on above: Performed By: #### L 500.2500, L100.0100 #### [facility] [address] [place], [address] MCHC (RBC) [Mass/Vol] 33.7 g/dL Normal 32-[address] [facility] Comment on above: Performed By: #### L 500.2500, L100.0100 #### [facility] [address] [place], [address] MCV (RBC) [Entitic vol] 89.6 fL Normal 80-94 [facility] Comment on above: Performed By: #### L 500.2500, L100.0100 #### [facility] [address] [place], [address] Monocytes/100 WBC (Bld) 11.6 % High 0-10 [facility] Comment on above: Performed By: #### L 500.2500, L100.0100 #### [facility] [address] [place], [address] Neutrophils/100 WBC (Bld) 58.7 % Normal 47-70 [facility] Comment on above: Performed By: #### L 500.2500, L100.0100 #### [facility] [address] [place], [address] Nucleated RBC (Bld) [#/Vol] 0 10*3/uL Normal 0-5 [facility] Comment on above: Performed By: #### L 500.2500, L100.0100 #### [facility] [address] [place], [address] Platelet mean volume (Bld) [Entitic vol] 11.7 fL Normal 6.2-12.0 [facility] Comment on above: Performed By: #### L 500.2500, L100.0100 #### [facility] [address] [place], [address] Platelets (Bld) [#/Vol] 189 10*3/uL Normal 150-450 [facility] Comment on above: Performed By: #### L 500.2500, L100.0100 #### [facility] [address] [place], [address] RBC (Bld) [#/Vol] 5.57 10*6/uL Normal 4.6-6.2 [facility] Comment on above: Performed By: #### L 500.2500, L100.0100 #### [facility] [address] [place], [address] RDW SD 42.4 fl Normal 35.1-43.9 [facility] Comment on above: Performed By: #### L 500.2500, L100.0100 #### [facility] [address] [place], [address] WBC (Bld) [#/Vol] 5.9 10*3/uL Normal 4.4-11.0 [facility] Comment on above: Performed By: #### L 500.2500, L100.0100 #### [facility] [address] [place], [address] Basophil percentageOrdered B y: Lisa Kodak on 01-24-2024 Bilirubin [Mass/Vol] 1.70 mg/dL 0.20-1.00 [facility] Comment on above: For patients on eltr ombopag therapy, use of Dimension [place] TBIL is not recommended. Cholesterol [Mass/Vol] 151 mg/dL <[address] [facility] Comment on above: <200 mg/dL Desirable 200-240 mg/dL Borderline >240 mg/dL High Risk Protein [Mass/Vol] 6.7 g/dL 6.4-8.2 [facility] Triglyceride [Mass/Vol] 213 mg/dL <199 [facility] Comment on above: The drugs N-Acetylcy steine and Metamizole may falsely depress this assay.Serum Triglycerides Reference Interval Normal <150 mg/dL Borderline high 150 - 199 mg/dL High 200 - 499 mg/dL Very High > or = 500 mg/dL Direct bilirubinOrdered By: Lisa Candelario on 01-24-2024 Bilirubin.direct [Mass/Vol] 0.37 mg/dL 0.00-0.30 [facility] - Chemistry and C hemistry - challengeOrdered By: Lisa Candelario on 01-24-2024 ALP [Catalytic activity/Vol] 99 U/L 45-117 [facility] ALT [Catalytic activity/Vol] 44 U/L 16-61 [facility] Cholesterol in HDL [Mass/Vol] 45 mg/dL >40 [facility] Comment on above: The drugs N-Acetylcy steine and Metamizole may falsely depress this assay. Reference Range HDL <40 mg/dL Low HDL Cholesterol HDL >or= 60 mg/dL High HDL Cholesterol Cholesterol in LDL [Mass/Vol] 63 mg/dL 0-130 [facility] Globulin (S) [Mass/Vol] 3.3 g/dL 2.2-4.2 [facility] No Panel InformationOrdered By: Lisa Candelario on 01-24-2024 VLDL Cholesterol 43 mg/dL 5-40 [facility] Thin prep Papanicolaou smear with manual screeningOrdered By: Lisa Candelario on 01-24-2024 Thin prep Papanicolaou smear with manual screening 3.4 g/dL 3.2-5.0 [facility] Thin prep Papanicolaou smear with manual screening 32 U/L 15-37 [facility] Absolute lymphocyte countOrd ered By: Dr. Lee on 04-16-2023 Lymphocytes Auto (Unsp spec) [#/Vol] 0.91 10*3/uL 0.83-4.51 [facility] Basophil percentageOrdered B y: Dr. Lee on 04-16-2023 Basophils/100 WBC (Bld) 0.4 % 0-1 [facility] Eosinophils/100 WBC (Bld) 1.8 % 0-5 [facility] Neutrophils (Bld) [#/Vol] 2.9 10*3/uL 2.0-7.7 [facility] Neutrophils/100 WBC (Bld) 56.7 % 47-70 [facility] WBC (Bld) [#/Vol] 5.1 10*3/uL 4.4-11.0 [facility] Blood erythrocytes count (nu mber/volume)Ordered By: Dr. Lee on 04-16-2023 RBC (Bld) [#/Vol] 6.01 10*6/uL 4.6-6.2 [facility] Blood hemoglobin measurement (mass/volume)Ordered By: Dr. Lee on 04-16-2023 Hemoglobin (Bld) [Mass/Vol] 17.3 g/dL 13.0-16.5 [facility] Blood lymphocytes/100 leukoc ytesOrdered By: Dr. Lee on 04-16-2023 Lymphocytes/100 WBC (Bld) 17.9 % 19-41 [facility] Blood monocytes/100 leukocyt esOrdered By: Dr. Lee on 04-16-2023 Monocytes/100 WBC (Bld) 22.8 % 0-10 [facility] Blood platelet mean volumeOr dered By: Dr. Lee on 04-16-2023 Platelet mean volume (Bld) [Entitic vol] 11.0 fL 6.2-12.0 [facility] Determination of erythrocyte mean corpuscular volume (MCV)Ordered By: Dr. Lee on 04-16-2023 MCV (RBC) [Entitic vol] 89.4 fL 80-94 [facility] Hematocrit Auto (Bld) [Volum e fraction]Ordered By: Dr. Lee on 04-16-2023 Hematocrit (Bld) [Volume fraction] 53.7 % 40-54 [facility] Laboratory - Hematology and Cell countsOrdered By: Dr. Lee on 04-16-2023 Erythrocyte distribution width (RBC) [Entitic vol] 46.0 fL 35.1-43.9 [facility] Erythrocyte distribution width (RBC) [Ratio] 14.1 % 11.6-14.6 [facility] Immature granulocytes/100 WBC (Bld) 0.400 % 0.0-0.9 [facility] Comment on above: IG% - Immature Granu locytes (promyelocytes, myelocytes and metamyelocytes) > 1% indicates that a LEFT SHIFT is Present. MCH (RBC) [Entitic mass] 28.8 pg 27.0-32.0 [facility] Nucleated RBC/100 WBC (Bld) [Ratio] 0 % 0-5 [facility] MCHC Auto (RBC) [Mass/Vol]Or dered By: Dr. Lee on 04-16-2023 MCHC (RBC) [Mass/Vol] 32.2 g/dL 32-[address] [facility] Platelets bldOrdered By: Dr. Lee on 04-16-2023 Platelets (Bld) [#/Vol] 177 10*3/uL 150-450 [facility] Basophil percentageOrdered B y: Dr. Gray on 12-27-2022 Bilirubin [Mass/Vol] 1.70 mg/dL 0.20-1.00 [facility] Comment on above: For patients on eltr ombopag therapy, use of Dimension [place] TBIL is not recommended. Cholesterol [Mass/Vol] 150 mg/dL <[address] [facility] Comment on above: <200 mg/dL Desirable 200-240 mg/dL Borderline >240 mg/dL High Risk Protein [Mass/Vol] 7.0 g/dL 6.4-8.2 [facility] Triglyceride [Mass/Vol] 132 mg/dL <199 [facility] Comment on above: The drugs N-Acetylcy steine and Metamizole may falsely depress this assay.Serum Triglycerides Reference Interval Normal <150 mg/dL Borderline high 150 - 199 mg/dL High 200 - 499 mg/dL Very High > or = 500 mg/dL Direct bilirubinOrdered By: Dr. Gray on 12-27-2022 Bilirubin.direct [Mass/Vol] 0.29 mg/dL 0.00-0.30 [facility] Laboratory - Chemistry and C hemistry - challengeOrdered By: Dr. Gray on 12-27-2022 ALP [Catalytic activity/Vol] 111 U/L 45-117 [facility] ALT [Catalytic activity/Vol] 40 U/L 16-61 [facility] Globulin (S) [Mass/Vol] 3.5 g/dL 2.2-4.2 [facility] Serum or plasma albumin jorge urement (mass/volume)Ordered By: Dr. Gray on 12-27-2022 Albumin [Mass/Vol] 3.5 g/dL 3.2-5.0 [facility] Serum or plasma cholesterol in HDL measurement (mass/volume)Ordered By: Dr. Gray on 12-27-2022 Cholesterol in HDL [Mass/Vol] 48 mg/dL >40 [facility] Comment on above: The drugs N-Acetylcy steine and Metamizole may falsely depress this assay. Reference Range HDL <40 mg/dL Low HDL Cholesterol HDL >or= 60 mg/dL High HDL Cholesterol Serum or plasma cholesterol in VLDL measurement (mass/volume)Ordered By: Dr. Gray on 12-27-2022 Cholesterol in VLDL [Mass/Vol] 26 mg/dL 5-40 [facility] Serum or plasma low density lipoprotein (LDL) cholesterol measurement (mass/volume)Ordered By: Dr. Gray on 12-27-2022 Cholesterol in LDL [Mass/Vol] 76 mg/dL 0-130 [facility] Thin prep Papanicolaou smear with manual screeningOrdered By: Dr. Gray on 12-27-2022 Thin prep Papanicolaou smear with manual screening 30 U/L 15-37 [facility] Comment on above: Slight Hemolysis, Re sult may be falsely increased. Esophageal DOBBINS pH Capsule Results / Interpretationon 12-25-2022 Esophageal DOBBINS pH Capsule Results / Interpretation PATIENTNAME Patient Name: Chuck Jason EXAMDATE Procedure Date: 12/25/2022 8:54 AM PATIENTID PATIENTACCOUNTNUM PATIENTDOB Date of : 1945 ADMITTYPE Admit Type: Outpatient PATIENTROOM Site: [facility] Endoscopy Room 2 ETHNICITY Ethnicity: Not or RACE Race: White PROVDR Attending MD: Rasheeda Cota MD, [id number] ENDOPROCEDURENAME Procedure: Esophageal DOBBINS pH Capsule Results / Interpretation INDICATION Indications: Esophageal dysphagia to solids x2-3, food got stuck and coughed it up. Heartburn rarely, taking Omeprazole 40mg BID (held for Dobbins), Suspected gastro-esophageal reflux disease. Chronic coughing/throat clearing, worse at night x 7-10 yrs. Negative work-ups from Pulmonary and ENT. Evaluating for possible Mira. EGD-12/25/22-Normal esophagus, z-line regular @ 40cm, GE flap Hill grade II, gastritis. Dobbins capsule placed at 34cm. PRIMARYPROVIDER Providers: Rasheeda Cota MD (Doctor), Roxanne Up RN (Nurse) , Carmen Kohler RN (Nurse) EDREFPROVIDER Referring: Beny Paz MD ENDOPROCEDURETEXT Procedure: The DOBBINS pH capsule was previously placed. Results from that study were obtained for interpretation. FINDING Findings: During the study the patient continued normal daily activity and normal diet and took no anti-reflux medications. TOTALS FOR ACID REFLUX ANALYSIS: - Acid Exposure Time(s) for pH < 4.0: Total Percent Time: 1.6 %. - Number of Reflux Episodes: Total Refluxes: 25 Number of reflux episodes > 5 minutes: 4. - Longest reflux episode: 28 minutes - Symptom Correlation: Reflux episodes did not correlate with symptoms noted during the study. - See the [employer] DOBBINS data report for further details. IMPRESS Impression: - Normal pH study. The patient's acid reflux is completely suppressed with a normal AET of 1.6% and DeMeester score of 8 - Reflux episodes did not correlate with symptoms noted during the study. ENDORECOMMENDATION Recommendation: - Return to referring physician as previously scheduled. CPT_CODES Procedure Code(s): --- Professional --- 23245, 26, Esophagus, gastroesophageal reflux test; with mucosal attached telemetry pH electrode placement, recording, analysis and interpretation ICD_CODES Diagnosis Code(s): --- Professional --- R05.3, Chronic cough R13.10, Dysphagia, unspecified R12, Heartburn CODINGSTMT CPT copyright 2020 [employer]. All rights reserved. The codes documented in this report are preliminary and upon office admin review may be revised to meet current compliance requirements. SIGNATURENAME Rasheeda Cota MD SIGNATUREDATE 01/04/2023 11:50:54 AM SIGNATUREONFILEIND This report has been signed electronically. NUMADDENDA Number of Addenda: 0 INITIATEDON Note Initiated On: 12/25/2022 8:54 AM Normal [facility] High Resolution esophageal m anometryon 12-25-2022 High Resolution esophageal manometry PATIENTNAME Patient Name: Chuck Jason EXAMDATE Procedure Date: 12/25/2022 8:47 AM PATIENTID PATIENTACCOUNTNUM PATIENTDOB Date of : 1945 ADMITTYPE Admit Type: Outpatient PATIENTROOM Site: [facility] Procedure Room 1 ETHNICITY Ethnicity: Not or RACE Race: White PROVDR Attending MD: Rasheeda Cota MD, [id number] ENDOPROCEDURENAME Procedure: High Resolution esophageal manometry INDICATION Indications: Esophageal dysphagia to solids x2-3, food got stuck and coughed it up. Heartburn rarely, taking Omeprazole 40mg BID (held for Dobbins), Suspected gastro-esophageal reflux disease. Chronic coughing/throat clearing, worse at night x 7-10 yrs. Negative work-ups from Pulmonary and ENT. Evaluating for possible Mira. EGD-12/25/22-Normal esophagus, z-line regular @ 40cm, GE flap Hill grade II, gastritis. Dobbins capsule placed at 34cm. PRIMARYPROVIDER Providers: Rasheeda Cota MD (Doctor), Roxanne Up RN (Nurse) EDREFPROVIDER Referring: Beny Paz MD ENDOPROCEDURETEXT Procedure: After obtaining informed consent, the manometry catheter was inserted. Throughout the procedure, the patient's blood pressure, pulse, and oxygen saturations were monitored. FINDING Findings: The LES pressure is normal at 26.6 mmHg and it appears to relax normally with a normal median IRP at 7.3 mmHg There is evidence of a small hiatal hernia The study of the esophageal peristalsis shows normal esophageal motility in all liquid swallows with a normal mean DCI of 1799 mmHg.sec.cm IMPEDANCE: - There was complete bolus clearance in 100 % of swallows. IMPRESS Impression: - Normal esophageal manometry with a small hiatal hernia ENDORECOMMENDATION Recommendation: - Return to referring physician as previously scheduled. CPT_CODES Procedure Code(s): --- Professional --- 85343, Esophageal motility (manometric study of the esophagus and/or gastroesophageal junction) study with interpretation and report; 46932, Esophageal function test, gastroesophageal reflux test with nasal catheter intraluminal impedance electrode(s) placement, recording, analysis and interpretation; --- Technical --- 70059, Esophageal motility (manometric study of the esophagus and/or gastroesophageal junction) study with interpretation and report; 67657, Esophageal function test, gastroesophageal reflux test with nasal catheter intraluminal impedance electrode(s) placement, recording, analysis and interpretation; ICD_CODES Diagnosis Code(s): --- Professional --- R13.14, Dysphagia, pharyngoesophageal phase R12, Heartburn --- Technical --- R13.14, Dysphagia, pharyngoesophageal phase R12, Heartburn CODINGSTMT CPT copyright 2020 [employer]. All rights reserved. The codes documented in this report are preliminary and upon office admin review may be revised to meet current compliance requirements. SIGNATURENAME Rasheeda Cota MD SIGNATUREDATE 01/04/2023 11:47:21 AM SIGNATUREONFILEIND This report has been signed electronically. NUMADDENDA Number of Addenda: 0 INITIATEDON Note Initiated On: 12/25/2022 8:47 AM Normal [facility] No Panel Informationon 12-25 [facility] 309 Work Phone: [email or web address] } [facility] Work Phone: [facility] Work Phone: [facility] Surgical Pathology Depar tmenton 12-25-2022 [facility] Surgical Pathology Department Name CHUCK JASON Pathologist: ZAIDA GREGORY MD Date of Procedure: 12/25/2022 Date Received: 12/25/2022 Date Reported 12/28/2022 Submitting Physician: RASHEEDA COTA MD Location: [facility] Other External # FINAL DIAGNOSIS A. GASTRIC, COLD BIOPSY: MILD CHRONIC GASTRITIS. NO H. PYLORI ORGANISMS IDENTIFIED. Electronically Signed Out By ZAIDA GREGORY MD/MSR By the signature on this report, the individual or group listed as making the Final Interpretation/Diagno sis certifies that they have reviewed this case. Diagnostic interpretation performed at [address] [place] [address] Clinical History: Heartburn A) rule out H.pylori Specimens Submitted As: A: GASTRIC, COLD BIOPSY Gross Description: Received in formalin, labeled with the patient's name and hospital number and A-gastric BX, are 2 fragments of gardiner, soft tissue aggregating to 0.7 x 0.4 x 0.2 cm. The specimen is submitted in toto in one cassette. LMP lmp/12/26/2022 [facility] Department of Pathology [address] [place] [address] Normal [facility] Comment on above: Performed By: #### [facility] #### [facility] Surgical Pathology Department [address] [place] [address] Upper GI endoscopyon 023 Upper GI endoscopy PATIENTNAME Patient Name: Chuck Jason EXAMDATE Procedure Date: 12/25/2022 9:56 AM PATIENTID PATIENTACCOUNTNUM PATIENTDOB Date of : 1945 ADMITTYPE Admit Type: Outpatient PATIENTROOM Site: [facility] Endoscopy Room 2 ETHNICITY Ethnicity: Not or RACE Race: White PROVDR Attending MD: Rasheeda Cota MD, [id number] ENDOPROCEDURENAME Procedure: Upper GI endoscopy INDICATION Indications: Heartburn, Follow-up of gastro-esophageal reflux disease PTPROFILE Patient Profile: Refer to note in patient chart for documentation of history and physical. PRIMARYPROVIDER Providers: Rasheeda Cota MD (Doctor), Massimo Zelaya RN (Nurse) , Karen Vivas RN (Nurse) , Iris Nuñez, Mica Builder EDREFPROVIDER Referring: Beny Paz MD CURRENT_MEDS Medicines: Monitored Anesthesia Care COMPLIC Complications: No immediate complications. Estimated blood loss: Minimal. ENDOPROCEDURETEXT Procedure: Pre-Anesthesia Assessment: - Prior to the procedure, a History and Physical was performed, and patient medications and allergies were reviewed. The patient is competent. The risks and benefits of the procedure and the sedation options and risks were discussed with the patient. All questions were answered and informed consent was obtained. Patient identification and proposed procedure were verified by the physician, the nurse and the certified medical technician assistant in the pre-procedure area. Mental Status Examination: alert and oriented. Airway Examination: Mallampati Class II (the uvula but not tonsillar pillars visualized). Respiratory Examination: clear to auscultation. CV Examination: normal. Prophylactic Antibiotics: The patient does not require prophylactic antibiotics. Prior Anticoagulants: The patient has taken no anticoagulant or antiplatelet agents. ASA Grade Assessment: II - A patient with mild systemic disease. After reviewing the risks and benefits, the patient was deemed in satisfactory condition to undergo the procedure. The anesthesia plan was to use monitored anesthesia care (MAC). Immediately prior to administration of medications, the patient was re-assessed for adequacy to receive sedatives. The heart rate, respiratory rate, oxygen saturations, blood pressure, adequacy of pulmonary ventilation, and response to care were monitored throughout the procedure. The physical status of the patient was re-assessed after the procedure. After obtaining informed consent, the endoscope was passed under direct vision. Throughout the procedure, the patient's blood pressure, pulse, and oxygen saturations were monitored continuously. The endoscope was introduced through the mouth, and advanced to the second part of duodenum. The upper GI endoscopy was accomplished without difficulty. The patient tolerated the procedure well. FINDING Findings: The examined esophagus was normal. The Z-line was regular and was found 40 cm from the incisors. The gastroesophageal flap valve was visualized endoscopically and classified as Hill Grade II (fold present, opens with respiration). Diffuse mild inflammation characterized by congestion (edema) and erythema was found in the stomach. Biopsies were taken with a cold forceps for Helicobacter pylori testing. The examined duodenum was normal. The DOBBINS capsule with delivery system was introduced through the mouth and advanced into the esophagus, such that the DOBBINS pH capsule was positioned 34 cm from the incisors, which was 6 cm proximal to the GE junction. Suction was applied to the well of the DOBBINS pH capsule to suck in the adjacent mucosa of the esophagus using the external vacuum pump set at a minimum vacuum pressure of 550 mmHg for 45 seconds. The DOBBINS pH capsule was then deployed by depressing the plunger on top of the handle to advance the locking pin into the mucosa, thereby attaching the capsule to the esophagus. The plunger was then rotated a quarter turn clockwise to release the capsule from the delivery system. The delivery system was then withdrawn. Endoscopy was utilized for probe placement and diagnostic evaluation. EBL Estimated Blood Loss: Estimated blood loss was minimal. IMPRESS Impression: - Normal esophagus. - Z-line regular, 40 cm from the incisors. - Gastroesophageal flap valve classified as Hill Grade II (fold present, opens with respiration). - Gastritis. Biopsied. - Normal examined duodenum. - The DOBBINS pH capsule was positioned 34 cm from the incisors, which was 6 cm proximal to the GE junction. ENDORECOMMENDATION Recommendation: - Patient has a contact number available for emergencies. The signs and symptoms of potential delayed complications were discussed with the patient. Return to normal activities tomorrow. Written discharge instructions were provided to the patient. - Resume previous (more content not included)... Normal [facility] Narrative Note - Outpatiento n 12-19-2022 Narrative Note - Outpatient Narrative Note: Description Spoke with patient and confirmed EMOT/EGD & Dobbins 12/25/22. Dobbins checklist completed, he stopped his PPI 12/13/22 and stopped taking Methenamine Mandelate as he thought it might interfere with the Dobbins study. I sent a note to Dr Cota to see if he needs hold this med or if he should continue taking as directed and I will get back to patient today. Explained procedures and need to return Dobbins recorder 4 days later. Called patient to let him know he should not stop the Methenamine Mandelate for the Dobbins. Verbalized understanding. Electronic Signatures: Carmen Kohler (AMBER) (Signed 19-Dec-2022 14:41) Authored: Narrative Note - OP Last Updated: 19-Dec-2022 14:41 by Carmen Kohler (AMBER) Normal [facility] Initial Visit (Gastroenterol ogy)on 12-12-2022 Initial Visit (Gastroenterology) Diagnoses/Problems Assessed Gastroesophageal reflux disease (530.81) (K21.9) Dysphagia (787.20) (R13.10) Patient Discussion/Summary We need to see if you have acid reflux. We will do an endoscopy with pH test and will do a swallow test at the same time. Provider Impressions Chronic GERD. He has suspected GERD based on some of the symptoms mainly regurgitation. His cough occurs at night and this could be related to acid reflux especially that he has had a negative work-up for pulmonary diseases and ENT. He has somewhat of a suboptimal response to omeprazole. I will do a formal work-up to start with and will do an EGD manometry and pH testing with Dobbins. We will schedule all the procedures on the same day since he lives far away. We will do the manometry first and then 2 hours later we will do the EGD with Dobbins and this will be off of PPIs. Patient is agreeable. We will follow-up depending on the results. Chief Complaint New patient here for chronic cough History of Present IllnessThis is a 77-year-old male referred to the heartburn clinic to [facility] Questionnaire Referred By: Beny Paz MD Symptoms: regurgitation, but no chest pain/pressure . Other symptoms:gets phlegm in throat causing coughing-throat clearing (worse at night) . symptoms wake you up at night wakes up coughing/phlegm in throat-says does not have acid taste How long have you experienced your symptoms: 7-10 years How often do you experience your discomfort: daily What helps relieve your discomfort: nothing GERD-HRQL Score Total: 12 HB: 0 Regurge: 12 (I counted him waking up coughing as regurge What medications have you tried and for how long? PPIs (specify which)Omeprazole 40mg/day-did a 2 week trial of 40mg BID but no change in symptoms History not taking narcotics/muscle relaxers, no nickel allergy, no pacemaker/defibrillat or. Previous diagnostic work-up yes EGD Many years ago, Other findingsHad a brain aneurysm that was repaired via his nose. Next Steps Appointment with heartburn clinic He said that his main problem is always the cough. He has seen a lung doctor and an ENT doctor and both told him there is nothing along with diet and this is acid reflux so this is how he was referred to Dr. Bazan who referred him to me. Patient said that he coughs mainly when he lies down and he feels something come up and then he has to cough all the time. Retired and lives in [place]. Non-smoker nonalcoholic. Review of Systems Constitutional: no fever, no chills, not feeling tired and no recent weight loss. Eyes: no yellow sclera/jaundice. ENT: no lymphadenopathy. Cardiovascular: no shortness of breath and no chest pain. Respiratory: no cough. Gastrointestinal: as noted in HPI. Musculoskeletal: no joint swelling. Integumentary: no rashes, no skin lesions and was no jaundice. Neurological: no headache. Psychiatric: no anxiety and no depression. Hematologic/Lymphatic : no tendency for easy bleeding and no tendency for easy bruising. All other systems have been reviewed and are negative for complaint. Active Problems Problems Gastroesophageal reflux disease (530.81) (K21.9) History of high cholesterol (V12.29) (Z86.39) Past Medical History Problems History of intracranial aneurysm (V12.54) (Z86.79) History of urinary tract infection (V13.02) (Z87.440) History of Lung infection (518.89) (J18.9) Surgical History Problems History of Brain surgery History of Knee replacement History of Leg surgery History of Lung lobectomy Social History Problems Never smoker No alcohol use No illicit drug use Allergies Medication No Known Drug Allergies Recorded By: Cami Cornejo; 11/13/2022 10:42:20 AM Current Meds Medication NameInstruction amLODIPine Besylate 2.5 MG Oral TabletTAKE 1 TABLET DAILY. Ezetimibe-Simvastatin 10-20 MG Oral TabletTAKE 1 TABLET DAILY. Methenamine Mandelate 1 GM Oral TabletTake 1 tablet twice daily Omeprazole 40 MG Oral Capsule Delayed ReleaseTAKE 1 CAPSULE Daily Vitamin C 500 MG Oral CapsuleTAKE 2 CAPSULE Daily Physical Exam Constitutional General appearance: In no acute distress. Overweight. Eyes Anicteric Sclerae. Ears, Nose, Mouth, and Throat Oropharynx without lesions. Neck Supple, no lymphadenopathy. Pulmonary Respiratory effort: No increased work of breathing or signs of respiratory distress. Auscultation of lungs Clear. Cardiovascular Auscultation of heart: RRR without murmur. Examination of extremities for edema: Normal. Abdomen Soft, non-tender. Bowel sounds normal. No hepatomegaly or splenomegaly. Skin No specific lesions, no spider angiomata or palmar erythema. Psychiatric judgement was appropriate, insight appropriate patient alert. Signatures Electronically signed by : Rasheeda Cota MD; Dec 12 2022 1:53PM EST (Author) Normal [facility] Initial Visit (Gastroenterol ogy)on 11-30-2022 Initial Visit (Gastroenterology) No report was sent Normal [facility] Visit (Thoracic and E sophageal Surgery)on 11-15-2022 Follow-up visit Diagnoses/Problems Assessed Gastroesophageal reflux disease (530.81) (K21.9) Provider Impressions Mr. CHUCK JASON is a 77 year-old man who presents for evaluation of GERD. Patient is symptoms of cough, which are likely related to chronic GERD. To confirm this diagnosis, I recommend referral to the GERD center at [facility] where he could have an endoscopy, 72-hour pH monitoring, and possible manometry testing (at the discretion of the providers there). If he is diagnosed with GERD, more sophisticated medical management and/or surgical invention may be appropriate. I will talk to the patient at that time regarding surgery and its potential benefits. This patient is currently obese. I believe this is contributing to his GERD and increases the risk of surgical invention. We discussed my recommendations to lose weight prior to surgery. Plan: Referral to GERD center Chief Complaint Chuck is here for a new visit regarding an evaluation for Mira procedure. Adult Risk ScreeningThere are spiritual/cultural practices/values/need s that are important to know: Bahai Initial Fall Risk Screening: CHUCK has not fallen in the last 6 months. CHUCK does not have a fear of falling. He does not need assistance with sitting, standing or walking. Does not need assistance walking in his home. He does not need assistance in an unfamiliar setting. The patient is not using an assistive device. Pain Scale: On a scale of 0 to 10, the patient rates the pain at 0. Living Will. Living Will: Living will on file. Did not bring. Healthcare POA: Health care proxy on file. Did not bring. Declaration of Mental Health Treatment: No mental health treatment on file. Tobacco Screening: CHUCK does not use tobacco. Has not used tobacco in the past 6 months. Domestic Violence Screen: Does not feel threatened or abused physically, emotionally or sexually. Do you feel UNSAFE? The patient feels safe in the home. Depression/Suicide Screening: During the past 2 weeks, the patient has not felt down, depressed or hopeless. During the past 2 weeks, the patient has not felt little interest or pleasure in doing things. He does not have a risk of suicide. He has not had thoughts of harming others. [place]-SUICIDE SEVERITY RATING SCALE 1. Have you wished you were or wished you could go to sleep and not wake up? -NO 2. Have you actually had any thoughts of killing yourself? - NO 6. Have you done anything, started to do anything, or prepared to do anything to end your life? - NO. Single alcohol screening question: In the past year the patient has had 5 or more drinks (men) or 4 or more drinks (women)? 0 time(s). Single substance abuse screening question: In the past year the patient has used a recreational drug or used a prescription drug for non-medical reasons? 0 time(s). Procedure or Sedation Areas: Not Applicable Nutrition Screening: In the past month, there was not a day when I or anyone in my family went hungry because there was not enough food. Patient Education: The patient denies that they or the person with them has problems with hearing, speaking, seeing, moving around or learning The patient is comfortable filling out medical forms. Food Insecurity: 1. Within the past 12 months, you worried that your food would run out before you got money to buy more: No 2. Within the past 12 months, the food you bought just didn't last and you didn't have money to get more: No History of Present Illness Mr. CHUCK JASON is a 77 year-old man who presents for evaluation of GERD. This patient presented with history of cough. This was evaluated by the ENT service with laryngoscopy and felt to be related to acid reflux. He was treated with increasing doses of omeprazole with no relief. He presents now for surgical evaluation. Currently the patient reports symptoms of cough. This is worse on lying down. He denies symptoms of heartburn. He denies symptoms of regurgitation. He denies dysphagia and can do regular diet without activity. He denies fevers and chills. He denies weight loss. Past medical history is notable for hypertension hyperlipidemia and recurrent urinary tract infections Past surgical history is notable for no previous abdominal surgeries Social history is notable for being a non-smoker. Family history is noncontributory Review of Systems Constitutional: not feeling tired, not feeling poorly, no fever, no chills, no recent weight gain and no recent weight loss. Eyes: wears eyeglasses, but no eyesight problems, no blurred vision, no diplopia, no eye pain, no purulent discharge from the eyes, eyes not red, no dryness of the eyes and no itching of the eyes. ENT: no hearing loss, no nosebleeds, no tinnitus, no earache, no sore throat, no hoarseness, no swollen glands in the neck and no nasal discharge. Cardiovascular: no intermittent leg claudication, no chest pain, no tightness or heavy pressure, no shortness of breath, (more content not included)... Normal [employer] Tobacco Screening.on 023 Adult depression screening assessment No [facility] [address] [place] Work Phone: Fall risk assessment a) No falls within the last year [facility] [place] Work Phone: Tobacco use status CPHS b) No [facility] [address] [place] Work Phone: Basophil percentageon 2021 Chloride [Moles/Vol] 109 mmol/L 98-107 [facility] Work Phone: Glucose [Mass/Vol] 119 mg/dL 74-106 [facility] Work Phone: Comment on above: Fasting Glucose resu lt from 100 to 125 mg/dL suggests IMPAIRED HOMEOSTASIS per A.D.A. criteria. Potassium [Moles/Vol] 3.8 mmol/L 3.5-5.[address] [facility] Work Phone: Sodium [Moles/Vol] 144 mmol/L 136-145 [facility] Work Phone: Laboratory - Chemistry and C hemistry - challengeon 09-04-2022 CO2 [Moles/Vol] 29.0 mmol/L 21.0-32.0 [facility] Work Phone: Urea nitrogen/Creatinine [Mass ratio] 14.1 mg/mg 10-20 [facility] Work Phone: No Panel Informationon 09-04 Estimated GFR (MDRD) Amer 66 mL/min >60 [facility] Work Phone: Comment on above: GFR Calc Estimated GFR (MDRD) Non-Af Amer 55 mL/min >60 [facility] Work Phone: Comment on above: Non- GFR Calc Serum or plasma calcium jorge urement (mass/volume)on 09-04-2022 Calcium [Mass/Vol] 9.0 mg/dL 8.5-10.1 [facility] Work Phone: Serum or plasma creatinine m easurement (mass/volume)on 09-04-2022 Creatinine [Mass/Vol] 1.35 mg/dL 0.70-1.[address] [facility] Work Phone: Comment on above: The validity of the calculated GFR & GFRAA in patients over 70 years has not been determined. Clinical correlation is essential. Serum or plasma urea nitroge n measurement (mass/volume)on 09-04-2022 Urea nitrogen [Mass/Vol] 19 mg/dL 7-18 [facility] Work Phone: Thin prep Papanicolaou smear with manual screeningon 09-04-2022 Thin prep Papanicolaou smear with manual screening 6 5-15 [facility] Work Phone: No Panel Informationon 06-01 Prostate Specific Antigen Screen 1.77 ng/mL 0.00-4.00 [facility] Work Phone: Comment on above: This test was perfor med using the TPSA assay method for the[facility] chemistry system. Values obtained with differentassay methods cannot be used interchangably.When changing PSA assays in the course of monitoring apatient, additional sequential testing should be carriedout to confirm baseline values. EMERGENCY REPORTon 1 EMERGENCY REPORT [facility] EMERGENCY ROOM REPORT NAME ACCOUNT SEX AGE ADMIT DISCHARGE PT MED. RECORD# NUMBER DATE DATE TYPE CASIE, [id number] M 76 09/27/21 09/27/21 3 CHUCK Rodrigues [id number] ROOM: ER DATE OF : 1945 DICTATING PHYSICIAN: Sinan Rivera HISTORY OF PRESENT ILLNESS: The patient is a 76-year-old male who presents to the emergency room for evaluation of a laceration to his right thumb, which is dominant. He was cutting tomatoes at home with a single blade cutter. It hit his finger. He had quite a bit of bleeding. He ran it under cold water, and then wrapped a clean rag around it and came to the emergency room. He states he did not hit the bone. He does not need an x-ray, but he has a laceration there and it was bleeding considerably. The bleeding slowed down. He is not any anticoagulants. He is not a diabetic. He denies any heart disease. He drove himself. PAST MEDICAL HISTORY: He does have hypertension. PHYSICAL EXAMINATION: GENERAL: On exam, he is initially in the lobby, and then he was transferred to the first room in x-ray because we did not have any rooms in the emergency room. We took him down to x-ray and sewed him up down there. NECK: Neck is supple. LUNGS: Lungs are clear. There is no expiratory wheeze, rales, rhonchi, or paradoxical chest motions. HEART: Heart rate and rhythm is regular without a murmur. EXTREMITIES: He had good radial pulses. VITAL SIGNS: 132/84 blood pressure, 89 pulse, 18 respirations, 98.9 tympanic screening temperature, and 98% saturation. EMERGENCY DEPARTMENT COURSE AND TREATMENT: Laceration is 3 cm in length. It is a full thickness flap. He has sensation to it. It has trevin. It is in the pulp of the thumb on the right. Light touch and sharp sensation is present around the wound. To the flap itself, it is slightly diminished. It is also slightly diminished just to the distal tip of the finger. It does not involve the joint creases, and there is no foreign body present. Utilizing 1% lidocaine without epinephrine about 5 mL we instilled around the wound. He had anesthesia accomplished, and then we cleansed the field with Betasept and we put in 4-0 Vicryl 4 stitches to hold the flap down. A dressing was applied. PLAN/DISPOSITION: He was given Keflex 500 and given Keflex for 3 days. He is to have the stitches out in 1 week, and told there will be a scar. He was told there would be altered sensation there. Return if any signs of infection. He was given a tetanus shot as well. The patient was ambulatory at discharge. Dictated By: Sinan Rivera DO 09/28/21 02:18 Page 1 of 2 CHUCK JASON Emergency Room Report CHUCK JASON : 1945 JOB #: [id number] Transcribed By: am 09/28/21 19:22 Electronically signed by: E-SIGN SINAN OMNABILA CHIANG 10/01/21 21:16 Page 2 of 2 CHUCK JASON Emergency Room Report Normal [facility] EMERGENCY REPORTon 1 EMERGENCY REPORT [facility] EMERGENCY ROOM REPORT NAME ACCOUNT SEX AGE ADMIT DISCHARGE PT MED. RECORD# NUMBER DATE DATE TYPE CASIE [id number] M 76 07/06/21 07/06/21 3 CHUCK Rodrigues [id number] ROOM: ER DATE OF : 1945 DICTATING PHYSICIAN: Lisa Howard CHIEF COMPLAINT: Right hip injury. HISTORY OF PRESENT ILLNESS: This is a 76-year-old male who was going to the bathroom last night, fell, and hit his right hip on the edge of a window sill. He presents complaining of pain and swelling, but he was able to ambulate and was able to drive his vehicle here. He denied any other head or neck injury. No loss of consciousness. No posttraumatic amnesia. No chest pain or palpitations. PAST MEDICAL HISTORY: He denies any anticoagulant usage. SOCIAL HISTORY: He denies smoking or alcohol consumption. REVIEW OF SYSTEMS: General: No fever or chills. ENT: No trauma. Pulmonary: No shortness of breath. Cardiac: No chest pains. Musculoskeletal: Right hip pain and some mild swelling. Neurologic: No loss of consciousness. No headache. No paresthesias. All other review of systems were normal or negative. PHYSICAL EXAMINATION: General: He is awake, alert, coherent, cooperative, and in no acute discomfort. Head is normocephalic. Ears without hemotympanum. Oropharynx shows moist mucous membranes. Neck shows full range of motion without tenderness. Lungs are clear to auscultation and percussion. Heart showed a regular rate and rhythm. Abdomen is soft and pliable, nontender. The right hip shows a large hematoma that is approximately 12 x 8 cm and is very firm but not discolored. There is no obvious dislocation. He is able to flex and extend. There is no obvious fracture at this time. Neurologic: Cranial nerves II through XII, motor, sensory and cerebellar function are all intact. There are no distal neurologic paresthesias or radiculopathy involved with this injury. Skin shows no bruising or ecchymosis. Vascular: Good capillary refill. Psychiatric: Normal affect. Lymphatics without any lymph node enlargement. Dictated By: Lisa Howard MD 07/06/21 14:54 JOB #: [id number] Transcribed By: reinaldo 07/07/21 13:40 Electronically signed by: Lisa Howard M.D. 08/02/21 07:36 Page 1 of 1 CHUCK JASON Emergency Room Report [facility] EMERGENCY REPORT [facility] EMERGENCY ROOM REPORT NAME ACCOUNT SEX AGE ADMIT DISCHARGE PT MED. RECORD# NUMBER DATE DATE TYPE CASIE [id number] M 76 07/06/21 07/06/21 3 CHUCK Rodrigues [id number] ROOM: ER DATE OF : 1945 DICTATING PHYSICIAN: Lisa Howard ADDENDUM DIAGNOSTIC DATA: X-ray studies of the right hip showed no fracture or dislocation. EMERGENCY DEPARTMENT COURSE AND TREATMENT: Treatment here included Motrin 600 mg p.o. DIAGNOSES: 1. Right hip contusion. 2. Right hip hematoma. PLAN/DISPOSITION: Ice to the affected area, Percocet for pain, bed or chair rest, and follow up with either his primary care physician or Orthopedics for follow-up. Dictated By: Lisa Howard MD 07/06/21 15:32 JOB #: [id number] Transcribed By: reinaldo 07/07/21 13:54 Electronically signed by: Lisa Howard M.D. 08/02/21 07:36 Page 1 of 1 CHUCK JASON Emergency Room Report Normal [facility] HIP COMPLETE RT MIN 2 VIEWS W/PELVISon 07-06-2021 HIP COMPLETE RT MIN 2 VIEWS W/PELVIS [address] [address] Patient: CHUCK JASON. Phone#: : [phone] Age: 76 Gender: M Pt. Type: ER Account: [id number] Location: [id number] Ordering: DR. LISA HOWARD Exam Date: 07/06/2021/15:10 Family Phys: Charge Code: [id number] Physician: Roosevelt Order #: [id number] DLP Dose#: PROCEDURE: X-RAY HIP RT COMPLETE MIN 2 VIEWS W/PELVIS COMPARISON: None. INDICATIONS: Trauma. FINDINGS: BONES: No fracture dislocation. Femoral head is normal in contour and seated in the acetabulum. There is large spurring of the right superior acetabular rim. Enthesopathy at the right iliac crest. Hardware present in the proximal left femur, partially imaged. SOFT TISSUES: Negative. No visible soft tissue swelling. EFFUSION: None visible. OTHER: Negative. CONCLUSION: 1. No acute osseous abnormality of the right hip 2. Right superior acetabular rim large spur Dictated by: Skye Maradiaga MD on 07/06/2021 at 15:36 Approved by: Skye Maradiaga MD on 07/06/2021 at 15:40 Normal [facility] Office Visit: [facility] 09-10-20 17 Documentation of current medications (procedure) Done Invalid Interpretation Code [facility] Work Phone: [phone] Fall risk assessment No Invalid Interpretation Code [facility] Work Phone: [phone] Office Visiton 09-08-2016 Dietary management education, guidance, and counseling (procedure) yes Invalid Interpretation Code [facility] Work Phone: [phone] Tobacco use CPHS Never smoker Invalid Interpretation Code [facility] Work Phone: [phone] Clinical Lists Updateon 08-06 Left ventricular Ejection fraction 55 % Invalid Interpretation Code [facility] Work Phone: [phone] Chart Maintenanceon 08-25-20 16 Anion gap 6 mmol/L Invalid Interpretation Code [facility] Work Phone: [phone] BUN/Creatinine Ratio 8.6 mg/mg Low [facility] Work Phone: [phone] Calcium 8.6 mg/dL Invalid Interpretation Code [facility] Work Phone: [phone] Chloride 107 mmol/L Invalid Interpretation Code [facility] Work Phone: [phone] CO2 30 mmol/L Invalid Interpretation Code [facility] Work Phone: [phone] Creatinine 1.4 mg/dL Invalid Interpretation Code [facility] Work Phone: [phone] Erythrocytes (RBC) 5.37 10*6/uL Invalid Interpretation Code [facility] Work Phone: [phone] Glucose mass conc 90 mg/dL Invalid Interpretation Code [facility] Work Phone: [phone] Hematocrit (HCT) 45.3 % Invalid Interpretation Code [facility] Work Phone: [phone] Hemoglobin mass conc (Bld) 15.4 g/dL Invalid Interpretation Code [facility] Work Phone: [phone] Platelets 200 10*3/mm3 Invalid Interpretation Code [facility] Work Phone: [phone] Potassium molar conc 4.0 mmol/L Invalid Interpretation Code [facility] Work Phone: [phone] Sodium 143 mmol/L Invalid Interpretation Code [facility] [facility] Work Phone: [phone] Urea nitrogen 12 mg/dL Invalid Interpretation Code [facility] [facility] Work Phone: [phone] WBC (Leukocytes) 5.2 10*3/uL Invalid Interpretation Code [facility] Work Phone: [phone] Lab Report: Serum Creatinine AND GFRon 02-16-2016 eGFR (non-black) 58 mL/min/{1.73_m2} Low >60 [facility] Work Phone: [phone] eGFR (non-black) 70 mL/min/{1.73_m2} Invalid Interpretation Code >60 [facility] Work Phone: [phone] Office Visit: Persistant cou ghon 02-10-2016 Alcoholism counseling (procedure) no Invalid Interpretation Code [facility] Work Phone: [phone] Tobacco smoking status NHIS Never Invalid Interpretation Code [facility] Work Phone: [phone] Lab Report: CBC W/Diff, Auto matedon 12-22-2015 Absolute Neut 4.7 X10 3/UL Invalid Interpretation Code 2.0-7.7 [facility] Work Phone: [phone] Basophils/100 WBC Auto (Bld) 0.7 % Invalid Interpretation Code 0-1 [facility] [facility] Work Phone: [phone] Eosinophils/100 leukocytes 1.9 % Invalid Interpretation Code 0-5 [facility] Work Phone: [phone] Erythrocyte distribution width Auto Ratio (RBC) 13.5 % Invalid Interpretation Code 11.6-14.6 [facility] Work Phone: [phone] Immature granulocytes/100 WBC (Bld) 0.100 % Invalid Interpretation Code 0.0-0.9 [employer] [facility] Work Phone: [phone] Lymphocytes 1.09 X10 3/UL Invalid Interpretation Code 0.83-4.51 [facility] Work Phone: [phone] Lymphocytes/100 leukocytes 16.2 % Low 19-41 [employer] [facility] Work Phone: [phone] MCH 28.7 pg Invalid Interpretation Code 27.0-32.0 [employer] [facility] [employer] Work Phone: [phone] MCHC mass conc (RBC) 33.9 G/GL Invalid Interpretation Code 32-36 [employer] [facility] [employer] Work Phone: [phone] MCV 84.9 fL Invalid Interpretation Code 80-94 [employer] [facility] [employer] Work Phone: [phone] Monocytes/100 leukocytes 11.0 % High 0-10 [employer] [facility] [employer] Work Phone: [phone] Neutrophils/100 WBC Auto (Bld) 70.1 % High 47-70 [employer] Work Phone: [phone] PMV by Lori 11.6 fL Invalid Interpretation Code 6.2-12.0 [employer] Work Phone: [phone] RDW SD 41.7 fL Invalid Interpretation Code 35.1-43.9 [employer] Work Phone: [phone] Lab Report: Comprehensive Nm tabolic Profilon 12-22-2015 Alanine aminotransferase (ALT) 28 U/L Invalid Interpretation Code 12-78 [employer] Work Phone: [phone] Albumin 3.5 g/dL Invalid Interpretation Code 3.4-5.0 [employer] Work Phone: [phone] Albumin/Globulin Ratio 1.1 {ratio} Invalid Interpretation Code 0.9-2.4 [employer] Work Phone: [phone] Alkaline phosphatase (ALP) 125 U/L Invalid Interpretation Code 50-136 [employer] [facility] [employer] Work Phone: [phone] Aspartate aminotransferase (AST) 23 U/L Invalid Interpretation Code 15-37 [employer] [facility] [employer] Work Phone: [phone] Bilirubin (total) 2.10 mg/dL High 0.20-1.00 [employer] [facility] Work Phone: [phone] Globulin 3.2 g/dL Invalid Interpretation Code 2.3-3.5 [facility] [facility] Work Phone: [phone] Protein 6.7 g/dL Invalid Interpretation Code 6.4-8.2 [facility] Work Phone: [phone] Lab Report: Lipid Profileon 12-22-2015 Cholesterol 165 mg/dL Invalid Interpretation Code 200 [employer] [facility] [employer] Work Phone: [phone] HDL Cholesterol 47 mg/dL Invalid Interpretation Code [facility] [facility] [employer] Work Phone: [phone] LDL Cholesterol 85 mg/dL Invalid Interpretation Code 0-130 [employer] Work Phone: [phone] Triglyceride 167 mg/dL Invalid Interpretation Code [facility] [facility] [employer] Work Phone: [phone] very low density lipoproteins 33 mg/dL Invalid Interpretation Code 5-40 [employer] Work Phone: [phone] Diagnostic Report Other: Mid otoniel ADELITA Observationson 05-14-2015 Pre Best FEV1 3.563 L Invalid Interpretation Code [employer] Work Phone: [phone] Pre Best FVC 4.278 L Invalid Interpretation Code [employer] Work Phone: [phone] Pre ExpTime 4.133 s Invalid Interpretation Code [facility] [facility] Work Phone: [phone] Pre FEF25 10.503 L/s Invalid Interpretation Code [facility] [facility] Work Phone: [phone] Pre SEU02-40 3.890 L/s Invalid Interpretation Code [facility] Work Phone: [phone] Pre FEF50 4.735 L/s Invalid Interpretation Code [facility] [facility] Work Phone: [phone] Pre FEF75 1.584 L/s Invalid Interpretation Code [facility] Work Phone: [phone] Pre FEV1 3.563 L Invalid Interpretation Code [facility] [employer] Work Phone: [phone] Pre FEV1/FVC new path % Invalid Interpretation Code [facility] Work Phone: [phone] Pre FVC 4.278 L Invalid Interpretation Code [facility] [employer] Work Phone: [phone] Pre PEF 10.502 L/s Invalid Interpretation Code [facility] [employer] Work Phone: [phone] Pre PEFLM 630.143 L/min Invalid Interpretation Code [facility] Work Phone: [phone] Pre V Ext 0.080 L Invalid Interpretation Code [facility] Work Phone: [phone] SpiromInterp Normal spirometry. Invalid Interpretation Code [facility] Work Phone: [phone] Office Visiton 04-26-2015 cardiac risk group C Invalid Interpretation Code [facility] Work Phone: [phone] General cardiovascular disease 10Y risk [#] [place] N/A Invalid Interpretation Code [facility] Work Phone: [phone] External Other: Preferred Me thod of Contacton 12-25-2014 methcontact secmsg Invalid Interpretation Code [facility] Work Phone: [phone] Lab Report: CBC W/Diff, Auto matedon 12-24-2014 Absolute Neut 2.8 X10 3/UL Invalid Interpretation Code 2.0-7.7 [facility] Work Phone: [phone] Lab Report: BID - copyon Bilirubin (direct) 0.43 mg/dL High 0.00-0.30 [facility] Work Phone: [phone] Lab Report: TSH - copyon Thyroid stimulating hormone (TSH) 0.87 u[iU]/mL Normal 0.358-3.74 [facility] [facility] Work Phone: [phone] Lab Report: UA - copyon 07-07 specific gravity, urine 1.020 Normal 1.002-1.030 [facility] Work Phone: [phone] Lab Reporton 07-29-2012 Cholesterol to HDL Ratio 4.0 {ratio} Invalid Interpretation Code [facility] Work Phone: Culture, urine Bacteria identified Cx Nom (U) Enterobacter cloacae complex [facility] Work Phone: Vital Signs Date Time Vital Sign Value Performing Clinician Clarissa walls 06-23-2025 08:31-0400 Body mass index (BMI) [Ratio] 37.5 kg/m2 Dr. Otoniel Lee DO Work Phone: [facility] 06-23-2025 08:31-0400 Body temperature 97.4 [degF] Dr. Otoniel Lee DO Work Phone: [facility] 06-23-2025 08:31-0400 Body weight 111.[address] Otoniel Lee DO Work Phone: [facility] 06-23-2025 08:31-0400 Diastolic blood pressure 65 mm[Hg] Dr. Otoniel Lee DO Work Phone: [facility] 06-23-2025 08:31-0400 Heart rate 70 /min Dr. Otoniel Lee DO Work Phone: [facility] 06-23-2025 08:31-0400 Respiratory rate 18 /min Dr. Otoniel Lee DO Work Phone: [facility] 06-23-2025 08:31-0400 SaO2% (BldA) [Mass fraction] 97 % Dr. Otoniel Lee DO Work Phone: [facility] 06-23-2025 08:31-0400 Systolic blood pressure 138 mm[Hg] Dr. Otoniel Lee DO Work Phone: [facility] 12-25-2023 13:28-0500 Body height 172.[address] Otoniel Lee Work Phone: [facility] 12-25-2023 13:28-0500 Body mass index (BMI) [Ratio] 37.5 kg/m2 Dr. Otoniel Lee Work Phone: [facility] 12-25-2023 13:28-0500 Body weight 112.[address] Otoniel Lee Work Phone: [facility] 12-25-2023 13:28-0500 Diastolic blood pressure 66 mm[Hg] Dr. Otoniel Lee Work Phone: [facility] 12-25-2023 13:28-0500 Heart rate 64 /min Dr. Otoniel Lee Work Phone: [facility] 12-25-2023 13:28-0500 Respiratory rate 16 /min Dr. Otoniel Lee Work Phone: [facility] 12-25-2023 13:28-0500 Systolic blood pressure 141 mm[Hg] Dr. Otoniel Lee Work Phone: [facility] 08-23-2023 06:06-0400 Body height 172.[address] Otoniel Lee Work Phone: [facility] 08-23-2023 06:06-0400 Body mass index (BMI) [Ratio] 36.8 kg/m2 Dr. Otoniel Lee Work Phone: [facility] 08-23-2023 06:06-0400 Body temperature 97.1 [degF] Dr. Otoniel Lee Work Phone: [facility] 08-23-2023 06:06-0400 Body weight 109.[address] Otoniel Lee Work Phone: [facility] 08-23-2023 06:06-0400 Diastolic blood pressure 74 mm[Hg] Dr. Otoniel Lee Work Phone: [facility] 08-23-2023 06:06-0400 Heart rate 80 /min Dr. Otoniel Lee Work Phone: [facility] 08-23-2023 06:06-0400 Respiratory rate 18 /min Dr. Otoniel Lee Work Phone: [facility] 08-23-2023 06:06-0400 SaO2% (BldA) [Mass fraction] 96 % Dr. Otoniel Lee Work Phone: [facility] 08-23-2023 06:06-0400 Systolic blood pressure 156 mm[Hg] Dr. Otoniel Lee Work Phone: [facility] 05-16-2023 06:17-0400 Body height 172.[address] Otoniel Lee Work Phone: [facility] 05-16-2023 06:17-0400 Body mass index (BMI) [Ratio] 36.9 kg/m2 Dr. Otoniel Lee Work Phone: [facility] 05-16-2023 06:17-0400 Body temperature 97.2 [degF] Dr. Otoniel Lee Work Phone: [facility] 05-16-2023 06:17-0400 Body weight 110.[address] Otoniel Lee Work Phone: [facility] 05-16-2023 06:17-0400 Diastolic blood pressure 73 mm[Hg] Dr. Otoniel Lee Work Phone: [facility] 05-16-2023 06:17-0400 Heart rate 62 /min Dr. Otoniel Lee Work Phone: [facility] 05-16-2023 06:17-0400 Respiratory rate 18 /min Dr. Otoniel Lee Work Phone: [facility] 05-16-2023 06:17-0400 SaO2% (BldA) [Mass fraction] 96 % Dr. Otoniel Lee Work Phone: [facility] 05-16-2023 06:17-0400 Systolic blood pressure 168 mm[Hg] Dr. Otoniel Lee Work Phone: [facility] 12-26-2022 13:34-0500 Body height 172.[address] Otoniel Lee Work Phone: [facility] 12-26-2022 13:34-0500 Body mass index (BMI) [Ratio] 37 kg/m2 Dr. Otoniel Lee Work Phone: [facility] 12-26-2022 13:34-0500 Body weight 110.[address] Otoniel Lee Work Phone: [facility] 12-26-2022 13:34-0500 Diastolic blood pressure 66 mm[Hg] Dr. Otoniel Lee Work Phone: [facility] 12-26-2022 13:34-0500 Heart rate 68 /min Dr. Otoniel Lee Work Phone: [facility] 12-26-2022 13:34-0500 Respiratory rate 16 /min Dr. Otoniel Lee Work Phone: [facility] 12-26-2022 13:34-0500 Systolic blood pressure 127 mm[Hg] Dr. Otoniel Lee Work Phone: [facility] 12-12-2022 13:24-0500 Body mass index (BMI) [Ratio] 37.25 kg/m2 Referring Provider [facility] Work Phone: 12-12-2022 13:24-0500 Body surface area Derived from formula 2.23 m2 Referring Provider [facility] Work Phone: 12-12-2022 13:24-0500 Body temperature 98 [degF] Referring Provider [facility] Work Phone: 12-12-2022 13:24-0500 Body weight 111.13 kg Referring Provider [facility] Work Phone: 12-12-2022 13:24-0500 Diastolic blood pressure 71 mm[Hg] Referring Provider [facility] Work Phone: 12-12-2022 13:24-0500 Heart rate 67 /min Referring Provider Unknown [facility] Work Phone: 12-12-2022 13:24-0500 Systolic blood pressure 146 mm[Hg] Referring Provider Unknown [facility] Work Phone: 11-15-2022 12:46-0500 Body height 172.72 cm Referring Provider Unknown [facility] [place] Work Phone: 11-15-2022 12:46-0500 Body mass index (BMI) [Ratio] 37.25 kg/m2 Referring Provider Unknown [facility] [place] Work Phone: 11-15-2022 12:46-0500 Body surface area Derived from formula 2.23 m2 Referring Provider Unknown [facility] [address] [place] Work Phone: 11-15-2022 12:46-0500 Body temperature 98.2 [degF] Referring Provider Unknown [facility] [place] Work Phone: 11-15-2022 12:46-0500 Body weight 111.13 kg Referring Provider Unknown [facility] [place] Work Phone: 11-15-2022 12:46-0500 Diastolic blood pressure 79 mm[Hg] Referring Provider Unknown [facility] [place] Work Phone: 11-15-2022 12:46-0500 Heart rate 91 /min Referring Provider Unknown [facility] [place] Work Phone: 11-15-2022 12:46-0500 Respiratory rate 18 /min Referring Provider Unknown [facility] [place] Work Phone: 11-15-2022 12:46-0500 SaO2% (BldA) [Mass fraction] 95 % Referring Provider Unknown [facility] [place] Work Phone: 11-15-2022 12:46-0500 Systolic blood pressure 156 mm[Hg] Referring Provider Unknown [facility] [place] Work Phone: 09-10-2017 09:10-0500 BMI (Body Mass Index) 35.73 kg/m2 [facility] Work Phone: 09-10-2017 09:10-0500 BP Diastolic 60 mm[Hg] [facility] Work Phone: 09-10-2017 09:10-0500 BP Systolic 132 mm[Hg] [facility] Work Phone: 09-10-2017 09:10-0500 Height 172.72 cm [facility] Work Phone: 09-10-2017 09:10-0500 Pulse (Heart Rate) 72 /min [facility] Work Phone: 09-10-2017 09:10-0500 Respiratory Rate 20 /min [facility] Work Phone: 09-10-2017 09:10-0500 Weight 106.6 kg [facility] Work Phone: 09-08-2016 13:39-0400 BSA (Body Surface Area) 2.2 m2 [facility] Work Phone: 02-10-2016 15:43-0400 Body Temperature 98 [degF] [facility] Work Phone: Encounters Encounter Date Encounter Type Care Provider Facility Start: 07-28-2025 ambulatory Sandra Berry NP Fac ility:[facility] Start: 07-23-2025 ambulatory Otoniel Lee Facility: [facility] Start: 06-23-2025 End: 06-23-2025 Patient encounter procedure Sandra Berry TRANSVERSE ABDOMINAL MUSCLE SURGEON-C -[facility] Work Phone: Start: 06-23-2025 End: 06-23-[address] Otoniel Lee DO Work Phone: -[facility] Start: 02-12-2025 End: 02-12-2025 ambulatory Otoniel Lee Facility:[facility] Start: 12-25-2024 End: 12-25-2024 ambulatory Otoniel Lee Facility:[facility] Start: 10-15-2024 End: 10-15-2024 ambulatory Otoniel Lee Facility:[facility] Start: 01-24-2024 End: 01-24-[address] Otoniel Lee Work Phone: [facility] Work Phone: Start: 01-24-2024 End: 01-24-[address] Otoniel Lee Work Phone: [facility]-Laboratory Work Phone: Start: 01-11-2024 Non-patient / Non-visit Dr. Otoniel Lee Work Phone: [facility] Start: 01-11-2024 End: 01-11-[address] Otoniel Lee Work Phone: [facility] Work Phone: Start: 01-11-2024 End: 01-11-[address] Otoniel Lee Work Phone: [facility]-Cardiovascula r Services Work Phone: Start: 12-25-2023 End: 12-25-[address] Otoniel Lee Work Phone: [facility] Work Phone: Start: 08-23-2023 End: 08-23-[address] Otoniel Lee Work Phone: [facility] Work Phone: Start: 08-23-2023 End: 08-23-[address] Otoniel Lee Work Phone: [facility] Medicine [facility] Work Phone: Start: 05-22-2023 End: 05-22-[address] Otoniel Lee Work Phone: [facility] Work Phone: Start: 05-22-2023 End: 05-22-[address] Otoniel Lee Work Phone: [facility]-Cat Scan, [facility] Work Phone: Start: 05-16-2023 End: 05-16-[address] Otoniel Lee Work Phone: [facility] Medicine [facility] Work Phone: Start: 05-05-2023 Non-patient / Non-visit Dr. Otoniel Lee Work Phone: [facility] Start: 05-04-2023 End: 05-04-[address] Otoniel Lee Work Phone: [facility] Work Phone: Start: 05-04-2023 End: 05-04-[address] Otoniel Lee Work Phone: [facility]-Pulmonary Services/Neurology Work Phone: Start: 04-16-2023 End: 04-16-[address] Otoniel Lee Work Phone: [facility] Work Phone: Start: 04-16-2023 End: 04-16-[address] Otoniel Lee Work Phone: [facility] Start: 12-29-2022 Chart Update Otoniel gonzalez Work Phone: [facility] [id number] Work Phone: Start: 12-27-2022 End: 12-27-[address] Otoniel Lee Work Phone: [facility] Work Phone: Start: 12-27-2022 End: 12-27-[address] Otoniel Lee Work Phone: [facility]Laboratory Start: 12-26-2022 End: 12-26-[address] Otoniel Lee Work Phone: [facility] Start: 12-25-2022 End: 12-25-[address] Rasheeda Cota Facility:[id number] Start: 12-13-2022 AUDIT Otoniel gonzalez Work Phone: [facility] Work Phone: Start: 12-12-2022 AUDIT Referring Prov ider Unknown [facility] Work Phone: Start: 12-12-[address] Rasheeda Cota Fac ility:[id number] Start: 11-30-2022 Patient encounter procedure Referring Provider Unknown [facility] Work Phone: Start: 11-30-[address] Otoniel Lee Facility:[id number] Start: 11-15-2022 Current tobacco non-user cad cap copd pv dm Referring Provider Unknown [facility] [address] [place] Work Phone: Start: 11-15-[address] Delroy Paz Facility:[id number] Start: 09-04-2022 End: 09-04-2022 ambulatory [facility] Work Phone: Start: 09-04-2022 End: 09-04-2022 Patient encounter procedure [facility]-Laboratory Start: 06-28-2022 End: 06-28-2022 ambulatory [facility] Work Phone: Start: 06-28-2022 End: 06-28-2022 Patient encounter procedure [facility]-Cat Scan, [facility] Start: 06-26-2022 End: 06-26-2022 ambulatory [facility] Work Phone: Start: 06-26-2022 End: 06-26-2022 Patient encounter procedure [facility] Start: 06-01-2022 End: 06-01-2022 Patient encounter procedure [facility] Start: 05-17-2022 End: 05-17-2022 Patient encounter procedure [facility]Laboratory, Specimen Start: 02-28-2022 End: 02-28-2022 [facility] Start: 09-27-2021 End: 09-27-2021 Emergency department patient visit JAN MONTANEZ [facility] Start: 07-06-2021 End: 07-06-2021 Emergency department patient visit LISA URIARTE [facility] Procedures Date Procedure Procedure Detail Performing Clinician Start: 05-22-2023 CT of chest without contrast Dr. Otoniel Lee Work Phone: Start: 06-28-2022 CT of abdomen and pe lvis without contrast Start: 09-10-2017 End: 09-10-2017 DEVICE REPAIR TECHNICIAN Chantelle Nur PA-C Work Phone: Start: 09-10-2017 End: 09-10-2017 Follow Up Appt 1 year Chantelle batres PA-C Work Phone: Start: 09-08-2016 End: 09-08-2016 Ecg routine ecg w/least 12 lds w/i&r Carlos Gray MD Start: 09-08-2016 End: 09-08-2016 Follow Up Appt 1 year Carlos Gray MD Start: 09-08-2016 End: 09-08-2016 MMM Carlos Gray MD Start: 02-10-2016 End: 02-16-2016 Ct thorax w/contrast material Otoniel Lee DO Work Phone: Start: 02-10-2016 End: 02-11-2016 Referral to respiratory physician Otoniel Lee DO Work Phone: Start: 12-20-2015 End: 12-22-2015 *CBC with Differential Otoniel Negro Work Phone: Start: 12-20-2015 End: 12-22-2015 *CMP Complete Metabolic Panel Otoniel Lee DO Work Phone: Start: 12-20-2015 End: 12-22-2015 Lipid 1996 panel - Serum or Plasma Otoniel Lee DO Work Phone: Start: 12-20-2015 End: 02-16-2016 Prostate specific Ag [Mass/volume] in Serum or Plasma Otoniel Lee DO Work Phone: Start: 05-14-2015 End: 02-16-2016 Spmtry w/vc expiratory kailey w/wo mxml vol vntj Otoniel Lee DO Work Phone: Start: 04-26-2015 End: 08-31-2017 Chest x-ray Carlos Gray MD Start: 04-26-2015 End: 04-27-2015 Documentation of current medications Carlos Gray MD Start: 04-26-2015 End: 08-31-2017 Follow Up Appt Other Carlos Gray MD Start: 02-11-2015 End: 08-31-2017 Colonoscopy flx dx w/collj spec when pfrmd Rubi Moreau Work Phone: Start: 02-11-2015 End: 08-31-2017 ENT referral Otoniel Lee DO Work Phone: Start: 02-01-2015 End: 08-31-2017 Surgery Referral Otoniel Lee DO Work Phone: Start: 12-14-2014 End: 12-24-2014 *CBC with Differential Otoniel Negro Work Phone: Start: 12-14-2014 End: 12-24-2014 *CMP Complete Metabolic Panel Otoniel Lee DO Work Phone: Start: 12-14-2014 End: 12-24-2014 25-Hydroxyvitamin D2+25-Hydroxyvitamin D3 [Mass/volume] in Serum or Plasma Otoniel Lee DO Work Phone: Start: 12-14-2014 End: 12-24-2014 Lipid 1996 panel - Serum or Plasma Otoniel Lee DO Work Phone: Start: 12-14-2014 End: 12-24-2014 Prostate specific Ag [Mass/volume] in Serum or Plasma Otoniel Lee DO Work Phone: Start: 12-14-2014 End: 12-24-2014 Surgery Referral Otoniel Lee DO Work Phone: Start: 04-28-2014 End: 08-31-2017 DEVICE REPAIR TECHNICIAN Carlos Gray MD Start: 04-28-2014 End: 08-31-2017 Follow Up Appt 1 year Carlos Gray MD Start: 01-03-2014 End: 08-31-2017 *Hepatic Function Panel Zehra Arevalo Start: 01-03-2014 End: 08-31-2017 Lipid Leanne panel - Serum or Plasma Carlos Gray MD Start: 01-03-2013 End: 08-03-2013 *Hepatic Function Panel eZhra Arevalo Start: 01-03-2013 End: 08-04-2013 Lipid Leanne panel - Serum or Plasma Carlos Gray MD Start: 08-09-2012 End: 08-09-2012 Follow Up Appt 1 year Carlos Gray MD Start: 07-23-2012 End: 07-30-2012 *Hepatic Function Panel Zehra Arevalo Start: 07-23-2012 End: 07-30-2012 Lipid Leanne panel - Serum or Plasma Carlos Gray MD Arthroplasty of knee Referri ng Provider Unknown Leg repair Referring Provi kourtney Unknown Lobectomy of lung Referring Provider Unknown Operation on brain Referring Provider Unknown Urine culture Plan of Treatment Date Care Activity Detail Author Start: 08-23-2023 Physiotherapy of chest [facility] Start: 12-25-2022 EGDANS, Provider: Rasheeda Cota, Status: Pen, Time: 12:00 PM EGDANS, Provider: Rasheeda Cota, Status: Pen, Time: 12:00 PM [facility] Work Phone: Start: 12-25-2022 EGDBRAVO, Provider: Rasheeda Cota, Status: Pen, Time: 9:30 AM EGDBRAVO, Provider: Rasheeda Cota, Status: Pen, Time: 9:30 AM [facility] Work Phone: Start: 09-10-2018 End: 09-10-2018 Appointment Appointment [facility] Work Phone: Start: 09-10-2017 End: 09-10-2017 DEVICE REPAIR TECHNICIAN DEVICE REPAIR TECHNICIAN [facility] Work Phone: Start: 09-10-2017 End: 09-10-2017 Follow Up Appt 1 year Follow Up Appt 1 year [facility] Work Phone: Start: 09-08-2016 End: 09-08-2016 Ecg routine ecg w/least 12 lds w/i&r EKG (In office) [facility] Work Phone: Start: 09-08-2016 End: 09-08-2016 Follow Up Appt 1 year Follow Up Appt 1 year [facility] Work Phone: Start: 09-08-2016 End: 09-08-2016 MMM MMM [facility] Work Phone: Start: 02-10-2016 End: 02-16-2016 Ct thorax w/contrast material CT Chest with Contrast [facility] Work Phone: Start: 02-10-2016 End: 02-11-2016 Pulmonary Referral Pulmonary Referral Lee Ervin, [facility], [address], [place], [address] [facility] Work Phone: Start: 12-20-2015 End: 12-22-2015 *CBC with Differential *CBC with Differential [facility] Work Phone: Start: 12-20-2015 End: 12-22-2015 *CMP Complete Metabolic Panel *CMP Complete Metabolic Panel [facility] Work Phone: Start: 12-20-2015 End: 12-22-2015 Lipid panel [AGGREGATE] *Lipid Profile [facility] Work Phone: Start: 12-20-2015 End: 02-16-2016 PSA *PSA (Prostate Specific Antigen) [facility] Work Phone: Start: 05-14-2015 End: 02-16-2016 Spmtry w/vc expiratory kailey w/wo mxml vol vntj Spirometry [facility] Work Phone: Start: 04-26-2015 End: 08-31-2017 Chest x-ray X-Ray, Chest, PA & Lateral [facility] Work Phone: Start: 04-26-2015 End: 08-31-2017 Follow Up Appt Other Follow Up Appt Other [employer] [facility] Work Phone: Start: 02-11-2015 End: 08-31-2017 Colonoscopy flx dx w/collj spec when pfrmd Colon[facility] Work Phone: Start: 02-11-2015 End: 02-15-2015 ENT referral ENT referral [facility], [address], [place], [address] [facility] Work Phone: Start: 02-01-2015 End: 02-02-2015 Surgery Referral Surgery Referral Rubi Moreau, ALEXANDRA, [address], [place], [address] [facility] Work Phone: Start: 12-14-2014 End: 12-24-2014 *CBC with Differential *CBC with Differential [facility] [employer] Work Phone: Start: 12-14-2014 End: 12-24-2014 *CMP Complete Metabolic Panel *CMP Complete Metabolic Panel [facility] [employer] Work Phone: Start: 12-14-2014 End: 12-24-2014 25-Hydroxyvitamin D2+25-Hydroxyvitamin D3 [Mass/volume] in Serum or Plasma *Vitamin D (Calciferol) [facility] [employer] Work Phone: Start: 12-14-2014 End: 12-24-2014 Lipid panel [AGGREGATE] *Lipid Profile [facility] Work Phone: Start: 12-14-2014 End: 12-24-2014 PSA *PSA (Prostate Specific Antigen) [facility] [employer] Work Phone: Start: 12-14-2014 End: 12-24-2014 Surgery Referral Surgery Referral Rubi Moreau, SHONDAF, [address], [place], [address] [facility] [employer] Work Phone: Start: 04-28-2014 End: 08-31-2017 DEVICE REPAIR TECHNICIAN DEVICE REPAIR TECHNICIAN [facility] [employer] Work Phone: Start: 04-28-2014 End: 08-31-2017 Follow Up Appt 1 year Follow Up Appt 1 year [facility] Work Phone: Start: 01-03-2014 End: 08-31-2017 *Hepatic Function Panel *Hepatic Function Panel [facility] Work Phone: Start: 01-03-2014 End: 08-31-2017 Lipid panel [AGGREGATE] *Lipid Profile CC PCP [facility] [employer] Work Phone: Start: 01-03-2013 End: 07-28-2013 *Hepatic Function Panel *Hepatic Function Panel [facility] Work Phone: Start: 01-03-2013 End: 08-04-2013 Lipid panel [AGGREGATE] *Lipid Profile [facility] Work Phone: Start: 08-09-2012 End: 08-09-2012 Follow Up Appt 1 year Follow Up Appt 1 year [facility] Work Phone: Start: 07-23-2012 End: 07-30-2012 *Hepatic Function Panel *Hepatic Function Panel [facility] Work Phone: Start: 07-23-2012 End: 07-30-2012 Lipid panel [AGGREGATE] *Lipid Profile [facility] Work Phone: Lipid 1996 panel - S choco or Plasma [facility] Patient Education Medications [facility] Work Phone: Heart [facility] Immunizations Immunization Date Immunization Notes Care Provider Carole null 09-21-2016 influenza, injectabl e, quadrivalent, preservative free Dr. Otoniel Lee Work Phone: [facility] 09-21-2016 influenza, seasonal, injectable [facility] 12-20-2015 CPT-[id number] Carolyn Hargrove [facility] Work Phone: Payers Date Payer Category Payer Self-pay [id number] 2011 Medicare [id number] 2004 Unknown [id number] 1946 Unknown [id number] 2.16.84 [id number] 1945 Unknown [id number] 2.16.84 [id number] 1946 Unknown [id number] 2.16.8 [id number] 1946 Unknown [id number] 2.16.8 [id number] 1946 Unknown [id number] 2.16.8 [id number] 1946 Unknown [id number] 2.16.8 [id number] 1946 Unknown [id number] 2.16. [id number] Unknown [id number] Unknown Unknown [id number] 2.16.8 [id number] Unknown [id number] 2.16.8 [id number] Unknown [id number] 2.16.8 [id number] Unknown [id number] 2.16.8 [id number] Unknown [id number] 2.16.8 [id number] Unknown [id number] 2.16.8 [id number] Unknown [id number] 2.16.8 [id number] Social History Date Type Detail Facility Start: 10-27-2021 End: 12-25-2023 Tobacco smoking status FLIS Unknown if ever smoked [facility] Start: 1945 Sex Assigned At Male W [facility] Never smoker Never smoker [facility] [address] [place] Work Phone: Start: 12-25-2023 Tobacco smoking stat us FLIS Never smoked tobacco (finding) [facility] Clinical Notes 05-05-2023 Note Date & Type Note Facility 05-05-2023 Procedure note [facility] Chief complaint Narrative - Reported Chuck is here for a new visit regarding an evaluation for Mira procedure. [facility] [address] [place] Work Phone: Evaluation note No assessment inform ation available [facility] Work Phone: Evaluation note Diagnosis Onset Date Atherosclerosis of coronary artery of [place] heart without angina pectoris chronic Essential (primary) hypertension chronic HLD (hyperlipidemia) chronic [facility] Work Phone: Evaluation note* Diagnosis Onset Date Resolution Status Chronic cough chronic [facility] Work Phone: Evaluation note* Diagnosis Onset Date Resolution Status Chronic cough chronic Bronchiectasis acute [facility] Work Phone: Evaluation note* Diagnosis Onset Date Resolution Status Admit Date Shortness of breath on exertion acut e June 23, 2025 12:47pm Bronchiectasis chronic June 12:47pm Mixed sleep apnea chronic June 23, 2025 12:47pm [facility] Work Phone: History of Present illness Narrative* Mr. CHUCK JASON is a 77 year-old man who presents for evaluation of GERD. * This patient presented with history of cough. This was evaluated by the ENT service with laryngoscopy and felt to be related to acid reflux. He was treated with increasing doses of omeprazole with norelief. He presents now for surgical evaluation. * Currently the patient reports symptoms of cough. This is worse on lying down. He denies symptoms ofheartburn. He denies symptoms of regurgitation. He denies dysphagia and can do regular diet withoutactivity. He denies fevers and chills. He denies weight loss. * Past medical history is notable for hypertension hyperlipidemia and recurrent urinary tract infections * Past surgical history is notable for no previous abdominal surgeries * Social history is notable for being a non-smoker. * Family history is noncontributory [facility] [address] [place] Work Phone: History of Present illness Narrative* [facility] * Referred By: Beny Paz MD * Symptoms: regurgitation, but no chest pain/pressure . Other symptoms:gets phlegm in throat causing coughing-throat clearing (worse at night) . symptoms wake you up at night wakes up coughing/phlegm in throat-says does not have acid taste * How long have you experienced your symptoms: 7-10 years * How often do you experience your discomfort: daily * What helps relieve your discomfort: nothing * GERD-HRQL Score Total: 12 HB: 0 Regurge: 12 (I counted him waking up coughing as regurge * What medications have you tried and for how long? PPIs (specify which)Omeprazole 40mg/day-did a 2 week trial of 40mg BID but no change in symptoms * History not taking narcotics/muscle relaxers, no nickel allergy, no pacemaker/defibrillator. 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 * Next Steps Appointment with heartburn clinic * Questionnaire completed by: Carm[facility] Kohler [id number] Work Phone: History of Present illness NarrativePatient denies family history of cancer. Denies drug, alcohol and tobacco use. Is retired and livesat home, his is in a [facility] Work Phone: Reason for referral (narrative)No reason for referral information [facility]: Summary Purpose Family History No Family History Records Found Relationship Condition Age at Onset Recorded Date/T edward grandfather Cardiac disease Unknown Advance Directives No Advanced Directives Records Found Advance Directive Response Recorded Date/ Time Advance Directives Yes August 25, 2016 11:08am Living Will Yes May 24, 2017 1:04pm Power of Gunstock Repairer Yes May 24 1:04pm Advance Directive Response Recorded Date/ Time Advance Directives Yes August 25, 2016 10:08am Living Will Yes May 24, 2017 12:04pm Power of Gunstock Repairer Yes May 24 12:04pm Advance Directive Response Recorded Date/ Time Advance Directives Yes August 25, 2016 11:08am Chief Complaint and Reason for Visit Chief Complaint URINE SAMPLE HEMATURIA Chief Complaint 1 y fu EORDERS Reason for Visit Atherosclerosis of c oronary artery of [place] heart without angina pectoris Essential (primary) hypertension HLD (hyperlipidemia) Chief Complaint Cough Cough Chief Complaint Cough Cough Chronic cough Chronic cough Reason for Visit Chronic cough Chief Complaint Cough Cough Chronic cough Chronic cough 3 M FU acepella Reason for Visit Chronic cough Bronchiectasis Chief Complaint 1 y fu Occlusion and stenosis of left carotid artery Reason for Visit Atherosclerosis of c oronary artery of [place] heart without angina pectoris Essential (primary) hypertension HLD (hyperlipidemia) Chief Complaint 1 y fu Occlusion and stenosis of left carotid artery E ORDERS Reason for Visit Atherosclerosis of c oronary artery of [place] heart without angina pectoris Essential (primary) hypertension HLD (hyperlipidemia) Chief Complaint Admit Date 6 M FU June 23, 2025 12 :47pm Reason for Visit Admit Date Shortness of breath on exertion June 052024 12:47pm Bronchiectasis June 23, 2025 12 :47pm Mixed sleep apnea June 23, 2025 12 :47pm Chief Complaint New virtual patient referred by Dr Paz for chronic cough Additional Source Comments (unrecognized sect ion and content) No Status Records FoundNo Status Records FoundNo Status Records FoundNo Status Records FoundNo Status Records Found INFORMATION SOURCE (unrecogn ized section and content) DATE CREATED AUTHOR 10/03/2021 [facility] DATE CREATED AUTHOR AUTHOR'S ORGANIZ ATION 12/13/2022 [employer] DATE CREATED AUTHOR AUTHOR'S ORGANIZ ATION 12/30/2022 [facility] DATE CREATED AUTHOR AUTHOR'S ORGANIZ ATION 02/23/2023 [facility] DATE CREATED AUTHOR AUTHOR'S ORGANIZ ATION 07/27/2025 [facility] Goals (unrecognized section and content) Goals may be documented in a n alternate sectionGoals may be documented in an alternate sectionGoals may be documented in an alternate sectionGoals may be documented in an alternate sectionGoals may be documented in an alternate sectionGoals may be documented in an alternate sectionGoals may be documented in an alternate sectionGoals may be documented in an alternate sectionGoals may be documented in an alternate sectionGoals may be documented in an alternate sectionGoals may be documented in an alternate sectionGoals may be documented in an alternate section Care Teams (unrecognized sec tion and content) Team Status: Active Member Role Status Dates Dr. Otoniel Lee , DO Family Provider Active Dr. Otoniel Lee , DO Primary Care Provider Active Team Status: Inactive Member Role Status Dates Dr. Otoniel Lee , DO Primary Care Provider, Referrin g Provider Active Dr. Carlos Gray MD Attending Provider Active Team Status: Inactive Member Role Status Dates Dr. Otoniel Lee , DO Primary Care Provider Active Dr. Carlos Gray MD Attending Provider Active Team Status: Inactive Member Role Status Dates Dr. Otoniel Lee , DO Primary Care Prov ider, Attending Provider, Referring Provider Active Team Status: Active Member Role Status Dates Dr. Otoniel Lee , DO Primary Care Prov ider, Referring Provider, Other Provider Active Dr. Joe Guo , DO Attending Provider Active Team Status: Inactive Member Role Status Dates Dr. Otoniel Lee , DO Primary Care Provider, Referrin g Provider Active Dr. Lee Ervin MD Attending Provider Active Team Status: Inactive Member Role Status Dates Dr. Otoniel Lee DO Primary Care Provider Active Dr. Lee Ervin MD Attending Provider, Referring Pr ovider Active Team Status: Inactive Member Role Status Dates Dr. Otoniel Lee DO Primary Care Provider, Referrin g Provider Active Lisa Candelario TRANSVERSE ABDOMINAL MUSCLE SURGEON, TRANSVERSE ABDOMINAL MUSCLE SURGEON-C Attending Provider Active Team Status: Active Member Role Status Dates Dr. Otoniel Lee DO Primary Care Provider Active Dr. Gilbert Yee MD Attending Provider Active Lisa H Kodak TRANSVERSE ABDOMINAL MUSCLE SURGEON, TRANSVERSE ABDOMINAL MUSCLE SURGEON-C Referring Provider Active Team Status: Inactive Member Role Status Dates Dr. Otoniel Lee DO Primary Care Provider Active Lisa H Kodak TRANSVERSE ABDOMINAL MUSCLE SURGEON, TRANSVERSE ABDOMINAL MUSCLE SURGEON-C Attending Provider, Referring Pro vider Active Team Status: Active Member Role/Relationship Status Dates Dr. Otoniel Lee DO Family Provider Active Dr. Otoniel Lee DO Primary Care Provider Active Team Status: Inactive Member Role/Relationship Status Dates Dr. Otoniel Lee DO Primary Care Provider Active Start: June 23, 2025 End: June 23, 2025 Dr. Otoniel Lee DO Referring Provider Active Start: June 23, 2025 End: June 23, 2025 Sandra Berry TRANSVERSE ABDOMINAL MUSCLE SURGEON, TRANSVERSE ABDOMINAL MUSCLE SURGEON-C Attending Provider Active Start: June 23, 2025 End: June 23, 2025 FOR RECORDS PERTAINING TO PATIENTS WHO ARE OR HAVE BEEN ENROLLED IN A CHEMICAL DEPENDENCY/SUBSTANCEABUSE PROGRAM, SOME INFORMATION MAY BE OMITTED. This clinical summary was aggregated from multiple sources. Caution should be exercised in using it in the provision of clinical care. This summary normalizes information from multiple sources, and as a consequence, information in this document may materially change the coding, format and clinical context of patient data. In addition, data may be omitted in some cases. CLINICAL DECISIONS SHOULD BE BASED ON THE PRIMARY CLINICAL RECORDS. [facility] [employer] [facility]. provides no warranty or guarantee of the accuracy or completeness of information in this document.
== END | disposition home or self-care (01) ==
LOC: SL 19:48
PROVIDERS: PCP Family Medicine; Referring Provider Nurse Practitioner Acute Care; Visit Provider Nurse Practitioner Acute Care
DX: G47.33 Obstructive sleep apnea (adult) (pediatric) (principal); G47.39 Other sleep apnea
CPT/HCPCS: 95811